=== PATIENT | male | born 1950 | race Caucasian/White ===

== ENCOUNTER 2016-11-04 11:16 | Inpatient (IN) | payer MEDICARE, OTHER ==
[~2016-11-04] VITALS: Ht 182.9 cm; Wt 90.7 kg
[~2016-11-04 11:16] MED LIST: ASCO-340 PO; BISA10SU8 RC; CARV6.252 PO; CLON0.5T PO; CLON1TAB PO; DEXT1CAP3 PO; DEXT38GE12 PO; DIPH-530 PO; DIVA500T4 PO; FOLI1TAB16 PO; GLUC1VIA IM; GLUCOSE GEL 40% PO; INSU100V10 SQ; INSU100V27 SQ; LACT10SO7 PO; LINE600T PO; MAGN400O4 PO; MULTIVITAL-M PO; OMEP40CA37 PO; QUET50TA PO; SIMV10TA2 PO; THIA100T70 PO; TYL2T PO; [UNRECOGNIZED DRUG - CODE] IV
[2016-11-04 11:55] LABS: BASOPHILS % (AUTO) 0.2 % (0.0-2.0); DIFF TOTAL % 100 %; EOSINOPHILS # (AUTO) 0.2 /CMM (0.0-0.7); EOSINOPHILS % (AUTO) 2.4 % (0.0-6.0); HEMATOCRIT 35 % (39-51); HEMOGLOBIN 11.1 g/dL (13.5-17.5); LYMPHOCYTES # (AUTO) 1.3 /CMM (0.8-4.8); LYMPHOCYTES % (AUTO) 12.8 % (20.0-44.0); MEAN CORPUSCULAR HEMOGLOBIN 25 PG (26.0-33.0); MEAN CORPUSCULAR HGB CONC 32 g/dl (31.0-36.0); MEAN CORPUSCULAR VOLUME 77 fL (80-96); MONOCYTES # (AUTO) 0.9 /CMM (0.1-1.30); MONOCYTES % (AUTO) 8.4 % (2.0-12.0); NEUTROPHILS # (AUTO) 7.8 /CMM (1.8-8.9); NEUTROPHILS % (AUTO) 76.2 % (43.0-81.0); PLATELET COUNT (AUTO) 246 /CMM (150-450); RED BLOOD CELL COUNT(AUTO) 4.53 MIL/uL (4.5-6.0); WHITE BLOOD COUNT (AUTO) 10.2 K/uL (4.3-11.0)
[2016-11-04 12:02] LABS: CALCIUM, SERUM 8.8 mg/dL (8.5-10.1); POTASSIUM 4.1 mmol/L (3.5-5.1)
[2016-11-04 12:10] LABS: TROPONIN I 0.054 ng/mL (0.00-0.056)
[2016-11-04 12:15] LABS: INR 1.9 (0.87-1.13); PROTHROMBIN TIME 20.7 SECS (9.5-12.7)
[2016-11-04 12:54] LABS: KETONES,URINE NEGATIVE (NEGATIVE); LEUKOCYTE ESTERASE ,URINE NEGATIVE (NEGATIVE); PH,URINE 6.5 (5.0-8.0)
[2016-11-04 12:57] LABS: ADD UA MICROSCOPIC YES
[2016-11-04] MEDS ORDERED: IV NS 0.9% 250 ML IV ONE (12:57)
[2016-11-04] MEDS ORDERED: IOHEXOL-350 100 ML VIAL IV ONE (12:57)
[2016-11-04] MEDS ORDERED: CT SWABBABLE VALVE TRANS SET 1 EA INFUS.SET MC ONE (12:57)
[2016-11-04 13:02] LABS: ADD URINE CULTURE NO; RBC,URINE 0-2 /HPF (0-2); WBC,URINE 0-2 /HPF (0-3)
[2016-11-04] MEDS ORDERED: MEROPENEM 1 G in IV NS 0.9% 100 ML IV SCH (14:00)
[2016-11-04] MEDS ORDERED: IV SET PRIMARY PUMP SET 1 EA INFUS.SET MC ONE ×2 (14:17→16:49)
[2016-11-04] MEDS ORDERED: ONDANSETRON HCL/PF 4 MG/2 ML VIAL IVP PRN (14:30)
[2016-11-04] MEDS ORDERED: ACETAMINOPHEN 325 MG TABLET PO SCH (14:30)
[2016-11-04] MEDS ORDERED: DEXTROSE 50% IV PRN (14:30)
[2016-11-04] MEDS ORDERED: IV NS 0.9% 1,000 ML BAG IV ONE (14:30)
[2016-11-04] MEDS ORDERED: WATER IV PRN (14:30)
[2016-11-04] MEDS ORDERED: ACETAMINOPHEN 325 MG TABLET PO PRN (14:30)
[2016-11-04] MEDS ORDERED: GLUCOSE PO SCH ×2 (14:30)
[2016-11-04] MEDS ORDERED: MORPHINE SULFATE INJ 2 MG/ML DISP.SYRIN IV PRN (14:30)
[2016-11-04] MEDS ORDERED: MAGNESIUM HYDROXIDE 30 ML UDC PO PRN (14:30)
[2016-11-04] MEDS ORDERED: DEXTROSE 50%-WATER 50 ML DISP.SYRIN IV PRN (14:30)
[2016-11-04] MEDS ORDERED: BISACODYL SUPP (10 MG) 10 MG/SUPP.RECT SUPP.RECT RC PRN (14:30)
[2016-11-04] MEDS ORDERED: GLUTOSE 15 G GEL..GM. PO SCH (14:30)
[2016-11-04] MEDS ORDERED: GLUCAGON,HUMAN RECOMBINANT 1 MG/VIAL VIAL IM PRN (14:30)
[2016-11-04 15:36] LABS: IRON, SERUM 28 ug/dl (50-175); PERCENT SATURATION 8 % (14-33); TOTAL IRON BINDING CAPACITY 368 ug/dl (250-450)
[2016-11-04 15:38] LABS: LACTIC ACID 1.4 mmol/L (0.4-2.0)
[2016-11-04 15:40] LABS: ABG HCO3 27.3 mmol/L; ABG PH 7.497 (7.350-7.450); ABG PO2 104.1 mmHg (75.0-100.0); ABG TOTAL HEMOGLOBIN 11.9 G/dL (13.5-18.0); ALLEN TEST Pass; AaDO2 53.1 mmHg; O2Hb 95.9 % (94.0-97.0)
[2016-11-04 15:44] LABS: ALBUMIN 3.3 g/dL (3.4-5.0); BILIRUBIN,DIRECT 0.3 mg/dL (0.0-0.2); INDIRECT BILIRUBIN 0.7 mg/dL (0.0-1.1); TOTAL PROTEIN, SERUM 6.4 g/dL (6.4-8.2)
[2016-11-04] MEDS ORDERED: diphenhydrAMINE HCL 25 MG CAPSULE PO PRN (16:00)
[2016-11-04 16:31] VITALS: BP 149/48
[2016-11-04] MEDS ORDERED: SECONDARY IV SET 1 EA INFUS.SET MC ONE (16:49)
[2016-11-04 17:00] VITALS: BP 143/100
[2016-11-04] MEDS: AZTREONAM 1 G in IV NS 0.9% 50 ML IV SCH (17:20)
[2016-11-04] MEDS: methylPREDNISolone SOD SUCC 125 MG/2ML VIAL IV SCH (17:21)
[2016-11-04] MEDS: CARVEDILOL 6.25 MG TABLET PO SCH (17:22)
[2016-11-04] MEDS: LACTULOSE 10 G/15 ML UDC (PYXIS) PO SCH (17:25)
[2016-11-04] MEDS: WARFARIN SODIUM 5 MG TABLET PO SCH (17:25)
[2016-11-04 17:30] VITALS: BP 152/50
[2016-11-04] MEDS: BLOOD SUGAR DIAGNOSTIC 1 EACH STRIP IN SCH (17:58)
[2016-11-04 18:00] VITALS: BP 149/117
[2016-11-04 20:00] VITALS: BP 132/91
[2016-11-04] MEDS ORDERED: Medication Not On Formulary EA (Dextromethorphan Hbr/Quinidine (Nuedexta 20-10 Mg Capsul PO SCH (21:00)
[2016-11-04] MEDS: QUETIAPINE FUMARATE 25 MG TABLET PO SCH (21:02)
[2016-11-04] MEDS: SIMVASTATIN 10 MG TABLET PO SCH (21:02)
[2016-11-04] MEDS: LINEZOLID 600 MG TABLET PO SCH (21:03)
[2016-11-04] MEDS: DIVALPROEX SODIUM 500 MG TABLET.DR PO SCH (21:03)
[2016-11-04] MEDS: INSULIN DETEMIR 100 UNIT/ML CARTRIDGE SQ SCH (21:09)
[2016-11-04] MEDS ORDERED: clonazePAM 1 MG TABLET PO SCH (22:00)
[2016-11-05] VITALS: BP 128/85
[2016-11-05] MEDS ORDERED: SECONDARY IV SET 1 EA INFUS.SET MC ONE ×2 (00:35→08:58)
[2016-11-05] MEDS ORDERED: IV SET PRIMARY PUMP SET 1 EA INFUS.SET MC ONE (00:36)
[2016-11-05] MEDS: BLOOD SUGAR DIAGNOSTIC 1 EACH STRIP IN SCH ×4 (00:44→17:05)
[2016-11-05] MEDS: AZTREONAM 1 G in IV NS 0.9% 50 ML IV SCH ×3 (00:45→16:53)
[2016-11-05] MEDS: INSULIN REGULAR, HUMAN 100 UNIT/ML 3 ML VIAL SQ PRN ×3 (00:48→17:39)
[2016-11-05 04:00] VITALS: BP 126/87
[2016-11-05 07:16] LABS: TROPONIN I 0.039 ng/mL (0.00-0.056)
[2016-11-05 07:21] LABS: ALBUMIN 2.9 g/dL (3.4-5.0); BILIRUBIN,TOTAL 0.9 mg/dL (0.2-1.0); CALCIUM, SERUM 8.5 mg/dL (8.5-10.1); POTASSIUM 4.5 mmol/L (3.5-5.1); TOTAL PROTEIN, SERUM 6.1 g/dL (6.4-8.2)
[2016-11-05 07:22] LABS: INR 2.03 (0.87-1.13); PROTHROMBIN TIME 22.1 SECS (9.5-12.7)
[2016-11-05 07:24] LABS: CREATINE KINASE MB 1.8 ng/mL (0-3.6)
[2016-11-05 07:28] LABS: BASOPHILS % (AUTO) 0.1 % (0.0-2.0); DIFF TOTAL % 100 %; HEMATOCRIT 34 % (39-51); HEMOGLOBIN 10.9 g/dL (13.5-17.5); LYMPHOCYTES # (AUTO) 0.5 /CMM (0.8-4.8); LYMPHOCYTES % (AUTO) 6.2 % (20.0-44.0); MEAN CORPUSCULAR HEMOGLOBIN 25 PG (26.0-33.0); MEAN CORPUSCULAR HGB CONC 32 g/dl (31.0-36.0); MEAN CORPUSCULAR VOLUME 77 fL (80-96); MONOCYTES # (AUTO) 0.3 /CMM (0.1-1.30); MONOCYTES % (AUTO) 4.3 % (2.0-12.0); NEUTROPHILS # (AUTO) 6.7 /CMM (1.8-8.9); NEUTROPHILS % (AUTO) 89.4 % (43.0-81.0); PLATELET COUNT (AUTO) 241 /CMM (150-450); RED BLOOD CELL COUNT(AUTO) 4.43 MIL/uL (4.5-6.0); WHITE BLOOD COUNT (AUTO) 7.5 K/uL (4.3-11.0)
[2016-11-05 08:00] VITALS: BP 118/88
[2016-11-05] MEDS ORDERED: IV NS 0.9% 250 ML IV ONE (08:58)
[2016-11-05] MEDS ORDERED: clonazePAM 0.5 MG TABLET PO SCH (09:00)
[2016-11-05] MEDS ORDERED: Medication Not On Formulary EA (Omeprazole 40 MG) PO SCH (09:00)
[2016-11-05] MEDS: PANTOPRAZOLE 40 MG VIAL IV SCH (09:03)
[2016-11-05] MEDS: MULTIVIT, IRON, MIN NO. 8, FA 1 TAB TABLET PO SCH (09:03)
[2016-11-05] MEDS: methylPREDNISolone SOD SUCC 125 MG/2ML VIAL IV SCH ×3 (09:03→16:54)
[2016-11-05] MEDS: ASCORBIC ACID 500 MG TABLET PO SCH (09:04)
[2016-11-05] MEDS: DIVALPROEX SODIUM 500 MG TABLET.DR PO SCH ×2 (09:04→21:10)
[2016-11-05] MEDS: THIAMINE HCL 100 MG TABLET PO SCH (09:04)
[2016-11-05] MEDS: CARVEDILOL 6.25 MG TABLET PO SCH ×2 (09:04→16:54)
[2016-11-05] MEDS: FOLIC ACID 1 MG TABLET PO SCH (09:04)
[2016-11-05] MEDS: LACTULOSE 10 G/15 ML UDC (PYXIS) PO SCH ×2 (09:04→16:54)
[2016-11-05] MEDS: LINEZOLID 600 MG TABLET PO SCH ×2 (09:05→21:10)
[2016-11-05 12:00] VITALS: BP 108/79
[2016-11-05] MEDS: IV D5/ 0.9% NACL 1,000 ML IV PRN (12:28)
[2016-11-05 16:00] VITALS: BP 131/90
[2016-11-05] MEDS: WARFARIN SODIUM 5 MG TABLET PO SCH (16:55)
[2016-11-05 20:00] VITALS: BP 130/87
[2016-11-05] MEDS: SIMVASTATIN 10 MG TABLET PO SCH (21:10)
[2016-11-05] MEDS: QUETIAPINE FUMARATE 25 MG TABLET PO SCH (21:10)
[2016-11-05] MEDS: INSULIN DETEMIR 100 UNIT/ML CARTRIDGE SQ SCH (21:19)
[2016-11-06] MEDS: AZTREONAM 1 G in IV NS 0.9% 50 ML IV SCH ×3 (01:09→16:43)
[2016-11-06] MEDS: IV D5/ 0.9% NACL 1,000 ML IV PRN ×2 (01:09→18:25)
[2016-11-06] MEDS: BLOOD SUGAR DIAGNOSTIC 1 EACH STRIP IN SCH ×5 (01:10→22:02)
[2016-11-06] MEDS: INSULIN REGULAR, HUMAN 100 UNIT/ML 3 ML VIAL SQ PRN ×4 (01:11→22:01)
[2016-11-06] MEDS ORDERED: HALOPERIDOL LACTATE INJ 5 MG/ML VIAL IM ONE (05:30)
[2016-11-06] MEDS ORDERED: HALOPERIDOL LACTATE INJ 5 MG/ML VIAL ONE (05:43)
[2016-11-06 08:00] VITALS: BP 128/92
[2016-11-06 08:09] LABS: POTASSIUM 4.1 mmol/L (3.5-5.1)
[2016-11-06 08:13] LABS: DIFF TOTAL % 100 %; EOSINOPHILS % (AUTO) 0.2 % (0.0-6.0); HEMATOCRIT 36 % (39-51); HEMOGLOBIN 11.6 g/dL (13.5-17.5); LYMPHOCYTES # (AUTO) 0.6 /CMM (0.8-4.8); LYMPHOCYTES % (AUTO) 4.7 % (20.0-44.0); MEAN CORPUSCULAR HEMOGLOBIN 25 PG (26.0-33.0); MEAN CORPUSCULAR HGB CONC 32 g/dl (31.0-36.0); MEAN CORPUSCULAR VOLUME 77 fL (80-96); MONOCYTES # (AUTO) 0.7 /CMM (0.1-1.30); MONOCYTES % (AUTO) 5.3 % (2.0-12.0); NEUTROPHILS # (AUTO) 11.6 /CMM (1.8-8.9); NEUTROPHILS % (AUTO) 89.8 % (43.0-81.0); PLATELET COUNT (AUTO) 266 /CMM (150-450); RED BLOOD CELL COUNT(AUTO) 4.73 MIL/uL (4.5-6.0); WHITE BLOOD COUNT (AUTO) 12.9 K/uL (4.3-11.0)
[2016-11-06] MEDS: LINEZOLID 600 MG TABLET PO SCH ×2 (08:33→22:02)
[2016-11-06] MEDS: PANTOPRAZOLE 40 MG VIAL IV SCH (08:33)
[2016-11-06] MEDS: methylPREDNISolone SOD SUCC 125 MG/2ML VIAL IV SCH ×3 (08:33→16:43)
[2016-11-06] MEDS: MULTIVIT, IRON, MIN NO. 8, FA 1 TAB TABLET PO SCH (08:33)
[2016-11-06] MEDS: ASCORBIC ACID 500 MG TABLET PO SCH (08:33)
[2016-11-06] MEDS: THIAMINE HCL 100 MG TABLET PO SCH (08:33)
[2016-11-06] MEDS: DIVALPROEX SODIUM 500 MG TABLET.DR PO SCH ×2 (08:33→22:02)
[2016-11-06] MEDS: FOLIC ACID 1 MG TABLET PO SCH (08:34)
[2016-11-06] MEDS: CARVEDILOL 6.25 MG TABLET PO SCH ×2 (08:34→16:43)
[2016-11-06] MEDS: LACTULOSE 10 G/15 ML UDC (PYXIS) PO SCH ×2 (08:37→16:43)
[2016-11-06 12:00] VITALS: BP 118/83
[2016-11-06] MEDS ORDERED: DEXTROSE 50%-WATER 50 ML DISP.SYRIN IV PRN (12:00)
[2016-11-06 16:00] VITALS: BP 118/83
[2016-11-06] MEDS: WARFARIN SODIUM 5 MG TABLET PO SCH (17:00)
[2016-11-06 17:42] LABS: PROTHROMBIN TIME 52.9 SECS (9.5-12.7)
[2016-11-06 17:48] LABS: INR 4.82 (0.87-1.13)
[2016-11-06] MEDS: Z GUARD REMEDY 2 OZ OINT TP SCH (17:52)
[2016-11-06] MEDS: INSULIN DETEMIR 100 UNIT/ML CARTRIDGE SQ SCH (21:56)
[2016-11-06] MEDS: QUETIAPINE FUMARATE 25 MG TABLET PO SCH (22:02)
[2016-11-06] MEDS: SIMVASTATIN 10 MG TABLET PO SCH (22:02)
[2016-11-07] VITALS: BP 125/68
[2016-11-07] MEDS: AZTREONAM 1 G in IV NS 0.9% 50 ML IV SCH ×3 (01:47→17:33)
[2016-11-07 07:19] LABS: DIFF TOTAL % 100 %; EOSINOPHILS % (AUTO) 0.2 % (0.0-6.0); HEMATOCRIT 36 % (39-51); HEMOGLOBIN 11.6 g/dL (13.5-17.5); LYMPHOCYTES # (AUTO) 0.7 /CMM (0.8-4.8); LYMPHOCYTES % (AUTO) 4.9 % (20.0-44.0); MEAN CORPUSCULAR HEMOGLOBIN 25 PG (26.0-33.0); MEAN CORPUSCULAR HGB CONC 32 g/dl (31.0-36.0); MEAN CORPUSCULAR VOLUME 77 fL (80-96); MONOCYTES # (AUTO) 0.7 /CMM (0.1-1.30); MONOCYTES % (AUTO) 4.6 % (2.0-12.0); NEUTROPHILS # (AUTO) 13.6 /CMM (1.8-8.9); NEUTROPHILS % (AUTO) 90.3 % (43.0-81.0); PLATELET COUNT (AUTO) 281 /CMM (150-450); RED BLOOD CELL COUNT(AUTO) 4.74 MIL/uL (4.5-6.0); WHITE BLOOD COUNT (AUTO) 15.1 K/uL (4.3-11.0)
[2016-11-07 07:26] LABS: INR 3.85 (0.87-1.13); PROTHROMBIN TIME 42.1 SECS (9.5-12.7)
[2016-11-07 07:35] LABS: ANION GAP 14 (5-14); CALCIUM, SERUM 8.7 mg/dL (8.5-10.1); CARBON DIOXIDE 24 mmol/L (21-32); CHLORIDE 106 mmol/L (98-107); GFR 75 mL/min (>60); GLUCOSE 147 mg/dL (74-106); POTASSIUM 4.1 mmol/L (3.5-5.1); SODIUM SERUM 140 mmol/L (136-145); UREA NITROGEN, BLOOD 25 mg/dL (7-18)
[2016-11-07 08:00] VITALS: BP 138/81
[2016-11-07 08:05] LABS: LACTIC ACID 2.1 mmol/L (0.4-2.0)
[2016-11-07 08:06] LABS: *LACTIC ACID REFLEX FLAG YES
[2016-11-07] MEDS: BLOOD SUGAR DIAGNOSTIC 1 EACH STRIP IN SCH ×4 (08:18→21:23)
[2016-11-07] MEDS: INSULIN REGULAR, HUMAN 100 UNIT/ML 3 ML VIAL SQ PRN ×4 (08:21→21:26)
[2016-11-07] MEDS: Z GUARD REMEDY 2 OZ OINT TP SCH (08:59)
[2016-11-07] MEDS: PANTOPRAZOLE 40 MG VIAL IV SCH (09:00)
[2016-11-07] MEDS ORDERED: Z GUARD REMEDY 2 OZ OINT TP SCH (09:00)
[2016-11-07] MEDS: CARVEDILOL 6.25 MG TABLET PO SCH ×3 (09:00→17:33)
[2016-11-07] MEDS: LACTULOSE 10 G/15 ML UDC (PYXIS) PO SCH ×2 (09:00→17:33)
[2016-11-07] MEDS: methylPREDNISolone SOD SUCC 125 MG/2ML VIAL IV SCH (09:00)
[2016-11-07] MEDS: FOLIC ACID 1 MG TABLET PO SCH (09:01)
[2016-11-07] MEDS: THIAMINE HCL 100 MG TABLET PO SCH (09:01)
[2016-11-07] MEDS: LINEZOLID 600 MG TABLET PO SCH (09:01)
[2016-11-07] MEDS: MULTIVIT, IRON, MIN NO. 8, FA 1 TAB TABLET PO SCH (09:01)
[2016-11-07] MEDS: DIVALPROEX SODIUM 500 MG TABLET.DR PO SCH ×2 (09:01→21:23)
[2016-11-07] MEDS: ASCORBIC ACID 500 MG TABLET PO SCH (09:01)
[2016-11-07] MEDS ORDERED: IV SET PRIMARY PUMP SET 1 EA INFUS.SET MC ONE (09:07)
[2016-11-07] MEDS ORDERED: IV NS 0.9% 500 ML IV ONE (09:07)
[2016-11-07] MEDS ORDERED: IV NS 0.9% 1,000 ML BAG IV ONE (09:30)
[2016-11-07 10:05] LABS: BILIRUBIN,DIRECT 0.2 mg/dL (0.0-0.2); BILIRUBIN,TOTAL 0.6 mg/dL (0.2-1.0)
[2016-11-07 12:00] VITALS: BP 134/90
[2016-11-07 16:00] VITALS: BP 139/90
[2016-11-07] MEDS: IV D5/ 0.9% NACL 1,000 ML IV PRN (16:21)
[2016-11-07 16:29] LABS: QFT NIL VALUE 0.03 IU/mL (.)
[2016-11-07] MEDS: WARFARIN SODIUM 5 MG TABLET PO SCH (17:00)
[2016-11-07 20:00] VITALS: BP 137/97
[2016-11-07] MEDS: QUETIAPINE FUMARATE 25 MG TABLET PO SCH (21:24)
[2016-11-07] MEDS: SIMVASTATIN 10 MG TABLET PO SCH (21:24)
[2016-11-07] MEDS: INSULIN DETEMIR 100 UNIT/ML CARTRIDGE SQ SCH (21:26)
[2016-11-08] MEDS: AZTREONAM 1 G in IV NS 0.9% 50 ML IV SCH ×3 (01:48→16:32)
[2016-11-08 04:00] VITALS: BP 132/90
[2016-11-08] MEDS: BLOOD SUGAR DIAGNOSTIC 1 EACH STRIP IN SCH ×4 (07:32→22:46)
[2016-11-08 08:00] VITALS: BP 123/89
[2016-11-08] MEDS: PANTOPRAZOLE 40 MG VIAL IV SCH (08:10)
[2016-11-08] MEDS: LACTULOSE 10 G/15 ML UDC (PYXIS) PO SCH ×2 (08:11→16:31)
[2016-11-08] MEDS: THIAMINE HCL 100 MG TABLET PO SCH (08:11)
[2016-11-08] MEDS: MULTIVIT, IRON, MIN NO. 8, FA 1 TAB TABLET PO SCH (08:11)
[2016-11-08] MEDS: ASCORBIC ACID 500 MG TABLET PO SCH (08:11)
[2016-11-08] MEDS: FOLIC ACID 1 MG TABLET PO SCH (08:11)
[2016-11-08] MEDS: DIVALPROEX SODIUM 500 MG TABLET.DR PO SCH ×2 (08:11→22:40)
[2016-11-08] MEDS: CARVEDILOL 6.25 MG TABLET PO SCH ×2 (08:11→16:31)
[2016-11-08] MEDS: Z GUARD REMEDY 2 OZ OINT TP SCH (08:12)
[2016-11-08 12:00] VITALS: BP 134/99
[2016-11-08 13:19] LABS: CALCIUM, SERUM 8.6 mg/dL (8.5-10.1); POTASSIUM 3.3 mmol/L (3.5-5.1)
[2016-11-08 13:25] LABS: INR 2.9 (0.87-1.13); PROTHROMBIN TIME 31.7 SECS (9.5-12.7)
[2016-11-08 14:18] LABS: DIFF TOTAL % 100 %; EOSINOPHILS % (AUTO) 0.1 % (0.0-6.0); HEMATOCRIT 37 % (39-51); HEMOGLOBIN 11.5 g/dL (13.5-17.5); LYMPHOCYTES # (AUTO) 0.6 /CMM (0.8-4.8); LYMPHOCYTES % (AUTO) 3.6 % (20.0-44.0); MEAN CORPUSCULAR HEMOGLOBIN 24 PG (26.0-33.0); MEAN CORPUSCULAR HGB CONC 32 g/dl (31.0-36.0); MEAN CORPUSCULAR VOLUME 77 fL (80-96); MONOCYTES # (AUTO) 0.6 /CMM (0.1-1.30); MONOCYTES % (AUTO) 3.8 % (2.0-12.0); NEUTROPHILS # (AUTO) 14.1 /CMM (1.8-8.9); NEUTROPHILS % (AUTO) 92.5 % (43.0-81.0); PLATELET COUNT (AUTO) 268 /CMM (150-450); RED BLOOD CELL COUNT(AUTO) 4.74 MIL/uL (4.5-6.0); WHITE BLOOD COUNT (AUTO) 15.3 K/uL (4.3-11.0)
[2016-11-08 16:00] VITALS: BP 159/70
[2016-11-08 16:16] VITALS: BP 159/70
[2016-11-08] MEDS: INSULIN REGULAR, HUMAN 100 UNIT/ML 3 ML VIAL SQ PRN (16:45)
[2016-11-08] MEDS ORDERED: WARFARIN SODIUM 1 MG TABLET PO SCH (17:00)
[2016-11-08 20:00] VITALS: BP 104/64
[2016-11-08] MEDS: INSULIN DETEMIR 100 UNIT/ML CARTRIDGE SQ SCH (22:00)
[2016-11-08] MEDS: QUETIAPINE FUMARATE 25 MG TABLET PO SCH (22:41)
[2016-11-08] MEDS: SIMVASTATIN 10 MG TABLET PO SCH (22:41)
[2016-11-08] MEDS ORDERED: IV SET PRIMARY PUMP SET 1 EA INFUS.SET MC ONE (23:15)
[2016-11-08] MEDS: IV D5/ 0.9% NACL 1,000 ML IV PRN (23:21)
[2016-11-08] MEDS ORDERED: SECONDARY IV SET 1 EA INFUS.SET MC ONE (23:31)
[2016-11-09] MEDS: AZTREONAM 1 G in IV NS 0.9% 50 ML IV SCH ×2 (00:39→08:14)
[2016-11-09 04:00] VITALS: BP 123/84
[2016-11-09] MEDS: BLOOD SUGAR DIAGNOSTIC 1 EACH STRIP IN SCH ×2 (06:48→12:11)
[2016-11-09 06:49] LABS: DIFF TOTAL % 100 %; EOSINOPHILS % (AUTO) 0.5 % (0.0-6.0); HEMATOCRIT 36 % (39-51); HEMOGLOBIN 11.3 g/dL (13.5-17.5); LYMPHOCYTES # (AUTO) 0.7 /CMM (0.8-4.8); LYMPHOCYTES % (AUTO) 6.9 % (20.0-44.0); MEAN CORPUSCULAR HEMOGLOBIN 24 PG (26.0-33.0); MEAN CORPUSCULAR HGB CONC 32 g/dl (31.0-36.0); MEAN CORPUSCULAR VOLUME 77 fL (80-96); MONOCYTES # (AUTO) 0.9 /CMM (0.1-1.30); MONOCYTES % (AUTO) 8.5 % (2.0-12.0); NEUTROPHILS % (AUTO) 84.1 % (43.0-81.0); PLATELET COUNT (AUTO) 230 /CMM (150-450); RED BLOOD CELL COUNT(AUTO) 4.68 MIL/uL (4.5-6.0); WHITE BLOOD COUNT (AUTO) 10.7 K/uL (4.3-11.0)
[2016-11-09 06:56] LABS: CALCIUM, SERUM 7.9 mg/dL (8.5-10.1); CREATININE 0.9 mg/dL (0.6-1.3); INR 2.79 (0.87-1.13); PROTHROMBIN TIME 30.4 SECS (9.5-12.7)
[2016-11-09 07:33] LABS: POTASSIUM 2.8 mmol/L (3.5-5.1)
[2016-11-09] MEDS ORDERED: SECONDARY IV SET 1 EA INFUS.SET MC ONE ×2 (07:57→08:50)
[2016-11-09] MEDS ORDERED: IV SET PRIMARY PUMP SET 1 EA INFUS.SET MC ONE (07:57)
[2016-11-09 08:00] VITALS: BP 114/85
[2016-11-09] MEDS: ASCORBIC ACID 500 MG TABLET PO SCH (08:14)
[2016-11-09] MEDS: PANTOPRAZOLE 40 MG VIAL IV SCH (08:14)
[2016-11-09] MEDS: MULTIVIT, IRON, MIN NO. 8, FA 1 TAB TABLET PO SCH (08:14)
[2016-11-09] MEDS: FOLIC ACID 1 MG TABLET PO SCH (08:14)
[2016-11-09] MEDS: DIVALPROEX SODIUM 500 MG TABLET.DR PO SCH (08:14)
[2016-11-09] MEDS: LACTULOSE 10 G/15 ML UDC (PYXIS) PO SCH (08:14)
[2016-11-09 08:15] VITALS: BP 114/85
[2016-11-09] MEDS: THIAMINE HCL 100 MG TABLET PO SCH (08:15)
[2016-11-09] MEDS: CARVEDILOL 6.25 MG TABLET PO SCH (08:15)
[2016-11-09] MEDS: Z GUARD REMEDY 2 OZ OINT TP SCH (08:15)
[2016-11-09] MEDS: POTASSIUM CL. PREMIX PERIPHER. 50 ML IV ONE ×2 (08:55→09:02)
[2016-11-09] MEDS: POTASSIUM CL. PREMIX PERIPHER. 50 ML IV SCH ×4 (09:20→12:49)
[2016-11-09] MEDS ORDERED: AZTR1FRO IV (11:34)
[2016-11-09] MEDS ORDERED: ONCOUMADIN PO (11:36)
== END 2016-11-09 18:38 | DRG 177 ==
LOC: ER 11:17 → ICU 15:48 → TELE1 18:38 → MEDSG1 11-05 11:36 → UNDODISIN 11-09 16:24
DX: J15.6 Pneumonia due to other Gram-negative bacteria (principal); I50.33 Acute on chronic diastolic (congestive) heart failure; G92 Toxic encephalopathy; D68.59 Other primary thrombophilia; E87.2 Acidosis; J90 Pleural effusion, not elsewhere classified; D50.9 Iron deficiency anemia, unspecified; E11.9 Type 2 diabetes mellitus without complications; E87.6 Hypokalemia; E88.09 Other disorders of plasma-protein metabolism, not elsewhere classified; F01.50 Vascular dementia, unspecified severity, without behavioral disturbance, psychotic disturbance, mood disturbance, and anxiety; F41.9 Anxiety disorder, unspecified; K21.9 Gastro-esophageal reflux disease without esophagitis; Z87.891 Personal history of nicotine dependence; D63.8 Anemia in other chronic diseases classified elsewhere; I11.0 Hypertensive heart disease with heart failure; Z86.73 Personal history of transient ischemic attack (TIA), and cerebral infarction without residual deficits; Z95.2 Presence of prosthetic heart valve; R47.1 Dysarthria and anarthria; I25.10 Atherosclerotic heart disease of native coronary artery without angina pectoris; Z95.1 Presence of aortocoronary bypass graft; I48.2 Chronic atrial fibrillation; Z79.01 Long term (current) use of anticoagulants; F32.9 Major depressive disorder, single episode, unspecified; S80.12XA Contusion of left lower leg, initial encounter; S80.11XA Contusion of right lower leg, initial encounter; X58.XXXA Exposure to other specified factors, initial encounter; Y93.9 Activity, unspecified; Y92.89 Other specified places as the place of occurrence of the external cause; Y99.9 Unspecified external cause status; I27.2 Other secondary pulmonary hypertension; T38.0X5A Adverse effect of glucocorticoids and synthetic analogues, initial encounter; Z87.01 Personal history of pneumonia (recurrent); Z88.1 Allergy status to other antibiotic agents
CPT/HCPCS: 36415; 36600; 70450-TC; 71010-TC; 80048-TC; 80053-TC; 80076-TC; 80164-TC; 81000-TC; 82247-TC; 82248-TC; 82272-TC; 82553-TC; 82962-TC; 83540-TC; 83605-TC; 84484-TC; 85025-TC; 85610-TC; 85730-TC; 87040-TC; 87081-TC; 87086-TC; 87186-TC; 87400; 92611-TC; 93307-TC; 94799-TC; A4216; A4606; C9113; J1630; J1815; J2185; J2930; J3480; J3490; J7030; J7040; J7042; J7050; Q9967; Z7610

== ENCOUNTER 2016-11-15 13:57 | Inpatient (IN) | payer MEDICARE, OTHER ==
[~2016-11-15] VITALS: Ht 177.8 cm; Wt 93.4 kg
[2016-11-15] VITALS (30 sets, daily range): BP systolic 68–121; BP diastolic 37–86
[~2016-11-15 13:57] MED LIST changes: +AZTR1FRO IV; -LINE600T PO; +ONCOUMADIN PO
[2016-11-15] MEDS ORDERED: DEXTROSE 50%-WATER 50 ML DISP.SYRIN ONE (14:06)
[2016-11-15] MEDS ORDERED: IV NS 0.9% 1,000 ML IV ONE (14:10)
[2016-11-15] MEDS ORDERED: DILTIAZEM HCL 25 MG IV ONE (14:16)
[2016-11-15] MEDS ORDERED: IV SET PRIMARY PUMP SET 1 EA INFUS.SET MC ONE ×2 (14:16→20:53)
[2016-11-15] MEDS ORDERED: IV NS 0.9% 1,000 ML ONE (14:16)
[2016-11-15 14:28] LABS: ABG BASE EXCESS -1.8 mmol/L; ABG HCO3 22.7 mmol/L; ABG PH 7.395 (7.350-7.450); ABG PO2 53.4 mmHg (75.0-100.0); ABG TOTAL HEMOGLOBIN 12.6 G/dL (13.5-18.0); ALLEN TEST Pass; AaDO2 260.4 mmHg; O2Hb 84.4 % (94.0-97.0)
[2016-11-15] MEDS ORDERED: DILTIAZEM HCL 50 MG IV IV ONE (14:30)
[2016-11-15] MEDS ORDERED: DEXTROSE 50%-WATER 50 ML DISP.SYRIN IV ONE (14:30)
[2016-11-15 14:53] LABS: BASOPHILS # (AUTO) 0.9 /CMM (0.0-0.2); BASOPHILS % (AUTO) 3.5 % (0.0-2.0); DIFF TOTAL % 100 %; EOSINOPHILS % (AUTO) 0.1 % (0.0-6.0); HEMATOCRIT 42 % (39-51); HEMOGLOBIN 12.9 g/dL (13.5-17.5); LYMPHOCYTES # (AUTO) 0.6 /CMM (0.8-4.8); LYMPHOCYTES % (AUTO) 2.3 % (20.0-44.0); MEAN CORPUSCULAR HEMOGLOBIN 24 PG (26.0-33.0); MEAN CORPUSCULAR HGB CONC 31 g/dl (31.0-36.0); MEAN CORPUSCULAR VOLUME 78 fL (80-96); MONOCYTES # (AUTO) 1.7 /CMM (0.1-1.30); MONOCYTES % (AUTO) 6.8 % (2.0-12.0); NEUTROPHILS # (AUTO) 21.7 /CMM (1.8-8.9); NEUTROPHILS % (AUTO) 87.3 % (43.0-81.0); PLATELET COUNT (AUTO) 297 /CMM (150-450); RED BLOOD CELL COUNT(AUTO) 5.39 MIL/uL (4.5-6.0); WHITE BLOOD COUNT (AUTO) 24.9 K/uL (4.3-11.0)
[2016-11-15 15:04] LABS: ANION GAP 14 (5-14); CALCIUM, SERUM 8.7 mg/dL (8.5-10.1); CARBON DIOXIDE 25 mmol/L (21-32); CHLORIDE 109 mmol/L (98-107); GFR 75 mL/min (>60); GLUCOSE 286 mg/dL (74-106); POTASSIUM 4.6 mmol/L (3.5-5.1); SODIUM SERUM 143 mmol/L (136-145); UREA NITROGEN, BLOOD 22 mg/dL (7-18)
[2016-11-15 15:12] LABS: TROPONIN I 0.038 ng/mL (0.00-0.056)
[2016-11-15 15:17] LABS: ALANINE AMINOTRANSFERASE 13 U/L (12-78); ASPARTATE AMINOTRANSFERASE 26 U/L (15-37); BILIRUBIN,DIRECT 0.4 mg/dL (0.0-0.2); BILIRUBIN,TOTAL 0.9 mg/dL (0.2-1.0); INDIRECT BILIRUBIN 0.5 mg/dL (0.0-1.1); TOTAL PROTEIN, SERUM 6.8 g/dL (6.4-8.2)
[2016-11-15 15:32] LABS: LACTIC ACID 2.3 mmol/L (0.4-2.0)
[2016-11-15 15:51] LABS: *LACTIC ACID REFLEX FLAG YES
[2016-11-15] MEDS ORDERED: AZTREONAM 1 G in IV NS 0.9% 100 ML IV ONE (16:00)
[2016-11-15] MEDS ORDERED: NITROGLYCERIN PACKET 1 GM PACKET TOP ONE (16:00)
[2016-11-15] MEDS ORDERED: FUROSEMIDE 40 MG/4 ML VIAL ONE (16:00)
[2016-11-15] MEDS ORDERED: FUROSEMIDE 40 MG/4 ML VIAL IV ONE (16:00)
[2016-11-15] MEDS ORDERED: NITROGLYCERIN PACKET 1 GM PACKET ONE (16:00)
[2016-11-15] MEDS ORDERED: ONDANSETRON HCL/PF 4 MG/2 ML VIAL ONE (16:01)
[2016-11-15 16:21] LABS: BAND % (MANUAL) 1 % (0.0-5.0); LYMPHOCYTES % (MANUAL) 6 % (16-48); PLATELET ESTIMATE ADEQUATE; POIKILOCYTOSIS 1+
[2016-11-15] MEDS ORDERED: MAGNESIUM HYDROXIDE 30 ML UDC PO PRN ×2 (16:30→23:30)
[2016-11-15] MEDS ORDERED: ONDANSETRON HCL/PF 4 MG/2 ML VIAL IVP PRN (16:30)
[2016-11-15] MEDS ORDERED: ZOLPIDEM TARTRATE 5 MG TABLET PO PRN (16:30)
[2016-11-15] MEDS ORDERED: Z GUARD REMEDY 2 OZ OINT TP PRN ×2 (16:30→18:30)
[2016-11-15] MEDS ORDERED: MAG HYDROX/AL HYDROX/SIMETH 30 ML UDC PO PRN (16:30)
[2016-11-15] MEDS ORDERED: ACETAMINOPHEN 325 MG TABLET PO PRN (16:30)
[2016-11-15] MEDS ORDERED: CLINDAMYCIN IV RTU IN D5W 900 MG/50 ML PIGGYBACK IV SCH (17:00)
[2016-11-15] MEDS ORDERED: LEVOFLOXACIN 750 MG /D5W 150ML 150 ML IV SCH (17:00)
[2016-11-15 17:09] LABS: KETONES,URINE 1+ (NEGATIVE); LEUKOCYTE ESTERASE ,URINE NEGATIVE (NEGATIVE)
[2016-11-15 17:11] LABS: ADD UA MICROSCOPIC YES
[2016-11-15 17:14] LABS: ADD URINE CULTURE NO; WBC,URINE 0-2 /HPF (0-3)
[2016-11-15] MEDS ORDERED: BLOOD SUGAR DIAGNOSTIC 1 EACH STRIP IN SCH (19:00)
[2016-11-15] MEDS ORDERED: DEXTROSE 50%-WATER 50 ML DISP.SYRIN IV PRN ×2 (19:00→21:00)
[2016-11-15] MEDS: IPRATROPIUM NEB FS 0.5 MG/2.5 ML AMPUL.NEB NEB SCH ×2 (19:33→23:13)
[2016-11-15] MEDS ORDERED: CLINDAMYCIN 900 MG in IV D5W 50 ML IV SCH (20:00)
[2016-11-15] MEDS ORDERED: IV NS 0.9% 250 ML IV ONE (20:30)
[2016-11-15] MEDS ORDERED: SECONDARY IV SET 1 EA INFUS.SET MC ONE ×2 (20:53→21:49)
[2016-11-15] MEDS: BLOOD SUGAR DIAGNOSTIC 1 EACH STRIP IN SCH ×2 (21:00→23:20)
[2016-11-15] MEDS: MEROPENEM 1 G in IV NS 0.9% 100 ML IV SCH (21:00)
[2016-11-15] MEDS ORDERED: MEROPENEM 500 MG in IV NS 0.9% 50 ML IV SCH (21:00)
[2016-11-15] MEDS ORDERED: NOREPINEPHRINE 8 MG in IV D5W 500 ML IV PRN (21:00)
[2016-11-15] MEDS: LINEZOLID RTU BAG 600 MG in PREMIX 1 EA IV SCH (21:32)
[2016-11-15] MEDS ORDERED: BISACODYL SUPP (10 MG) 10 MG/SUPP.RECT SUPP.RECT RC PRN (23:30)
[2016-11-16] VITALS (79 sets, daily range): BP systolic 62–156; BP diastolic 31–94
[2016-11-16] MEDS ORDERED: AZTREONAM 1 G in IV NS 0.9% 100 ML IV SCH ×2
[2016-11-16] MEDS: BLOOD SUGAR DIAGNOSTIC 1 EACH STRIP IN SCH ×7 (01:13→13:58)
[2016-11-16] MEDS ORDERED: CELLULOSE,OXIDIZED 1 EA PACK MC ONE (02:00)
[2016-11-16] MEDS: ALBUTEROL FS 2.5 MG/0.5 ML VIAL.NEB NEB PRN (03:55)
[2016-11-16] MEDS: IPRATROPIUM NEB FS 0.5 MG/2.5 ML AMPUL.NEB NEB SCH ×6 (03:55→23:51)
[2016-11-16] MEDS: MEROPENEM 1 G in IV NS 0.9% 100 ML IV SCH ×3 (04:30→20:11)
[2016-11-16 04:44] LABS: DIFF TOTAL % 100 %; HEMATOCRIT 35 % (39-51); HEMOGLOBIN 10.9 g/dL (13.5-17.5); LYMPHOCYTES # (AUTO) 0.7 /CMM (0.8-4.8); MEAN CORPUSCULAR HEMOGLOBIN 24 PG (26.0-33.0); MEAN CORPUSCULAR HGB CONC 32 g/dl (31.0-36.0); MEAN CORPUSCULAR VOLUME 77 fL (80-96); MONOCYTES # (AUTO) 1.8 /CMM (0.1-1.30); MONOCYTES % (AUTO) 8.3 % (2.0-12.0); NEUTROPHILS # (AUTO) 19.4 /CMM (1.8-8.9); NEUTROPHILS % (AUTO) 88.7 % (43.0-81.0); PLATELET COUNT (AUTO) 276 /CMM (150-450); RED BLOOD CELL COUNT(AUTO) 4.47 MIL/uL (4.5-6.0); WHITE BLOOD COUNT (AUTO) 21.9 K/uL (4.3-11.0)
[2016-11-16 04:53] LABS: CALCIUM, SERUM 7.9 mg/dL (8.5-10.1); POTASSIUM 4.3 mmol/L (3.5-5.1)
[2016-11-16 05:07] LABS: LACTIC ACID 1.4 mmol/L (0.4-2.0)
[2016-11-16 05:08] LABS: THYROID STIMULATING HORMONE 0.696 uIU/mL (0.358-3.74)
[2016-11-16 05:16] LABS: INR 2.96 (0.87-1.13); PROTHROMBIN TIME 32.3 SECS (9.5-12.7)
[2016-11-16] MEDS ORDERED: FUROSEMIDE 40 MG/4 ML VIAL ONE (06:21)
[2016-11-16] MEDS: FUROSEMIDE 40 MG/4 ML VIAL IV SCH ×3 (06:27→13:59)
[2016-11-16] MEDS: DIVALPROEX SODIUM 500 MG TABLET.DR PO SCH ×2 (08:09→21:01)
[2016-11-16] MEDS: MULTIVIT, IRON, MIN NO. 8, FA 1 TAB TABLET PO SCH (08:09)
[2016-11-16] MEDS: LINEZOLID RTU BAG 600 MG in PREMIX 1 EA IV SCH ×2 (08:10→20:11)
[2016-11-16] MEDS: PANTOPRAZOLE 40 MG TABLET.DR PO SCH (08:10)
[2016-11-16] MEDS: FOLIC ACID 1 MG TABLET PO SCH (08:12)
[2016-11-16] MEDS: THIAMINE HCL 100 MG TABLET PO SCH (08:12)
[2016-11-16] MEDS ORDERED: Medication Not On Formulary EA (Dextromethorphan Hbr/Quinidine (Nuedexta 20-10 Mg Capsul PO SCH (09:00)
[2016-11-16] MEDS ORDERED: Magnesium 1GM/D5W 100ML PREMIX 100 ML IV SCH (10:00)
[2016-11-16] MEDS ORDERED: SECONDARY IV SET 1 EA INFUS.SET MC ONE (10:23)
[2016-11-16] MEDS: Magnesium 1GM/D5W 100ML PREMIX 100 ML IV SCH ×3 (10:47→13:57)
[2016-11-16] MEDS: HYDROCODONE/APAP 5/325MG 1 EACH TABLET PO PRN (11:38)
[2016-11-16] MEDS ORDERED: DEXTROSE 50%-WATER 50 ML DISP.SYRIN IV PRN (14:30)
[2016-11-16] MEDS ORDERED: WARFARIN SODIUM 1 MG TABLET PO SCH (17:00)
[2016-11-16] MEDS ORDERED: LACTOBACILLUS RHAMNOSUS GG 1 EACH CAP.SPRINK PO SCH (17:00)
[2016-11-16] MEDS: clonazePAM 0.5 MG TABLET PO PRN ×2 (17:09→21:00)
[2016-11-16] MEDS: BLOOD SUGAR DIAGNOSTIC 1 EACH STRIP VI SCH ×2 (17:11→21:15)
[2016-11-16] MEDS: *INSULIN REGULAR(HUMULIN R)HUM 100 UNIT/ML VIAL SQ PRN (18:20)
[2016-11-16] MEDS: QUETIAPINE FUMARATE 25 MG TABLET PO SCH (21:01)
[2016-11-16] MEDS: INSULIN REGULAR, HUMAN 100 UNIT/ML 3 ML VIAL SQ PRN (21:12)
[2016-11-16] MEDS ORDERED: SIMVASTATIN 10 MG TABLET PO SCH (22:00)
[2016-11-17] VITALS (21 sets, daily range): BP systolic 82–120; BP diastolic 23–77
[2016-11-17] MEDS: QUETIAPINE FUMARATE 25 MG TABLET PO PRN (00:35)
[2016-11-17] MEDS: IPRATROPIUM NEB FS 0.5 MG/2.5 ML AMPUL.NEB NEB SCH ×4 (03:30→14:48)
[2016-11-17 04:54] LABS: BASOPHILS % (AUTO) 0.2 % (0.0-2.0); DIFF TOTAL % 100 %; EOSINOPHILS # (AUTO) 0.1 /CMM (0.0-0.7); EOSINOPHILS % (AUTO) 0.5 % (0.0-6.0); HEMATOCRIT 29 % (39-51); HEMOGLOBIN 9.3 g/dL (13.5-17.5); LYMPHOCYTES # (AUTO) 0.8 /CMM (0.8-4.8); LYMPHOCYTES % (AUTO) 6.6 % (20.0-44.0); MEAN CORPUSCULAR HEMOGLOBIN 24 PG (26.0-33.0); MEAN CORPUSCULAR HGB CONC 32 g/dl (31.0-36.0); MEAN CORPUSCULAR VOLUME 77 fL (80-96); MONOCYTES # (AUTO) 1.3 /CMM (0.1-1.30); MONOCYTES % (AUTO) 10.2 % (2.0-12.0); NEUTROPHILS # (AUTO) 10.2 /CMM (1.8-8.9); NEUTROPHILS % (AUTO) 82.5 % (43.0-81.0); PLATELET COUNT (AUTO) 219 /CMM (150-450); RED BLOOD CELL COUNT(AUTO) 3.83 MIL/uL (4.5-6.0); WHITE BLOOD COUNT (AUTO) 12.3 K/uL (4.3-11.0)
[2016-11-17 05:05] LABS: ALBUMIN 2.1 g/dL (3.4-5.0); BILIRUBIN,TOTAL 0.6 mg/dL (0.2-1.0); CALCIUM, SERUM 7.9 mg/dL (8.5-10.1); CREATININE 1.2 mg/dL (0.6-1.3); PHOSPHORUS 2.9 mg/dL (2.5-4.9); POTASSIUM 4.1 mmol/L (3.5-5.1); TOTAL PROTEIN, SERUM 5.1 g/dL (6.4-8.2)
[2016-11-17 05:10] LABS: TROPONIN I 0.044 ng/mL (0.00-0.056)
[2016-11-17 05:18] LABS: IRON, SERUM 17 ug/dl (50-175); PERCENT SATURATION 6 % (14-33); TOTAL IRON BINDING CAPACITY 269 ug/dl (250-450)
[2016-11-17] MEDS: MEROPENEM 1 G in IV NS 0.9% 100 ML IV SCH ×3 (05:32→20:41)
[2016-11-17 06:15] LABS: INR 3.47 (0.87-1.13)
[2016-11-17] MEDS: BLOOD SUGAR DIAGNOSTIC 1 EACH STRIP VI SCH ×4 (06:30→21:25)
[2016-11-17] MEDS: FOLIC ACID 1 MG TABLET PO SCH (08:04)
[2016-11-17] MEDS: DIVALPROEX SODIUM 500 MG TABLET.DR PO SCH ×2 (08:04→22:18)
[2016-11-17] MEDS: MULTIVIT, IRON, MIN NO. 8, FA 1 TAB TABLET PO SCH (08:04)
[2016-11-17] MEDS: PANTOPRAZOLE 40 MG TABLET.DR PO SCH (08:05)
[2016-11-17] MEDS: THIAMINE HCL 100 MG TABLET PO SCH (08:09)
[2016-11-17] MEDS: FUROSEMIDE 100 MG/10 ML VIAL IV SCH ×3 (08:10→15:41)
[2016-11-17] MEDS: LINEZOLID RTU BAG 600 MG in PREMIX 1 EA IV SCH ×2 (08:12→21:20)
[2016-11-17] MEDS: SOD FERRIC GLUC 125 MG in IV NS 0.9% 100 ML IV SCH (14:26)
[2016-11-17] MEDS: QUETIAPINE FUMARATE 25 MG TABLET PO SCH (22:18)
[2016-11-18] VITALS: BP 95/75
[2016-11-18] MEDS: clonazePAM 0.5 MG TABLET PO PRN ×2 (00:44→22:34)
[2016-11-18 04:00] VITALS: BP 97/56
[2016-11-18] MEDS: QUETIAPINE FUMARATE 25 MG TABLET PO PRN (04:36)
[2016-11-18] MEDS: MEROPENEM 1 G in IV NS 0.9% 100 ML IV SCH ×3 (05:14→21:30)
[2016-11-18] MEDS: BLOOD SUGAR DIAGNOSTIC 1 EACH STRIP VI SCH ×4 (06:48→21:31)
[2016-11-18 06:50] VITALS: BP 109/54
[2016-11-18] MEDS: PANTOPRAZOLE 40 MG TABLET.DR PO SCH (07:30)
[2016-11-18] MEDS: DIVALPROEX SODIUM 500 MG TABLET.DR PO SCH ×2 (09:34→21:31)
[2016-11-18] MEDS: THIAMINE HCL 100 MG TABLET PO SCH (09:35)
[2016-11-18] MEDS: MULTIVIT, IRON, MIN NO. 8, FA 1 TAB TABLET PO SCH (09:35)
[2016-11-18] MEDS: FOLIC ACID 1 MG TABLET PO SCH (09:35)
[2016-11-18] MEDS: LINEZOLID RTU BAG 600 MG in PREMIX 1 EA IV SCH ×2 (09:38→20:57)
[2016-11-18] MEDS: INSULIN REGULAR, HUMAN 100 UNIT/ML 3 ML VIAL SQ PRN (12:23)
[2016-11-18 12:51] LABS: BASOPHILS # (AUTO) 0.1 /CMM (0.0-0.2); BASOPHILS % (AUTO) 0.4 % (0.0-2.0); DIFF TOTAL % 100 %; EOSINOPHILS # (AUTO) 0.1 /CMM (0.0-0.7); EOSINOPHILS % (AUTO) 0.9 % (0.0-6.0); HEMATOCRIT 32 % (39-51); HEMOGLOBIN 9.9 g/dL (13.5-17.5); LYMPHOCYTES # (AUTO) 0.5 /CMM (0.8-4.8); LYMPHOCYTES % (AUTO) 3.8 % (20.0-44.0); MEAN CORPUSCULAR HEMOGLOBIN 24 PG (26.0-33.0); MEAN CORPUSCULAR HGB CONC 31 g/dl (31.0-36.0); MEAN CORPUSCULAR VOLUME 76 fL (80-96); MONOCYTES # (AUTO) 0.8 /CMM (0.1-1.30); MONOCYTES % (AUTO) 5.7 % (2.0-12.0); NEUTROPHILS # (AUTO) 12.7 /CMM (1.8-8.9); NEUTROPHILS % (AUTO) 89.2 % (43.0-81.0); PLATELET COUNT (AUTO) 226 /CMM (150-450); RED BLOOD CELL COUNT(AUTO) 4.17 MIL/uL (4.5-6.0); WHITE BLOOD COUNT (AUTO) 14.3 K/uL (4.3-11.0)
[2016-11-18 12:54] LABS: CALCIUM, SERUM 7.7 mg/dL (8.5-10.1); POTASSIUM 3.6 mmol/L (3.5-5.1)
[2016-11-18 13:07] LABS: INR 3.16 (0.87-1.13); PROTHROMBIN TIME 34.5 SECS (9.5-12.7)
[2016-11-18] MEDS: HYDROCODONE/APAP 5/325MG 1 EACH TABLET PO PRN ×2 (13:18→14:58)
[2016-11-18] MEDS: SOD FERRIC GLUC 125 MG in IV NS 0.9% 100 ML IV SCH (15:14)
[2016-11-18] MEDS: Magnesium 1GM/D5W 100ML PREMIX 100 ML IV SCH ×4 (15:25→20:48)
[2016-11-18 16:00] VITALS: BP 105/60
[2016-11-18] MEDS ORDERED: SECONDARY IV SET 1 EA INFUS.SET MC ONE (16:08)
[2016-11-18] MEDS: IPRATROPIUM NEB FS 0.5 MG/2.5 ML AMPUL.NEB NEB SCH ×3 (16:30→23:34)
[2016-11-18 20:00] VITALS: BP 101/62
[2016-11-18] MEDS ORDERED: IV SET PRIMARY PUMP SET 1 EA INFUS.SET MC ONE (20:42)
[2016-11-18] MEDS: QUETIAPINE FUMARATE 25 MG TABLET PO SCH (21:31)
[2016-11-18] MEDS: *INSULIN REGULAR(HUMULIN R)HUM 100 UNIT/ML VIAL SQ PRN (21:44)
[2016-11-19] MEDS: IPRATROPIUM NEB FS 0.5 MG/2.5 ML AMPUL.NEB NEB SCH ×6 (03:39→23:31)
[2016-11-19] MEDS: MEROPENEM 1 G in IV NS 0.9% 100 ML IV SCH (04:37)
[2016-11-19 06:19] LABS: BASOPHILS % (AUTO) 0.1 % (0.0-2.0); DIFF TOTAL % 100 %; EOSINOPHILS # (AUTO) 0.3 /CMM (0.0-0.7); EOSINOPHILS % (AUTO) 2.6 % (0.0-6.0); HEMATOCRIT 33 % (39-51); HEMOGLOBIN 10.7 g/dL (13.5-17.5); LYMPHOCYTES # (AUTO) 1.4 /CMM (0.8-4.8); MEAN CORPUSCULAR HEMOGLOBIN 25 PG (26.0-33.0); MEAN CORPUSCULAR HGB CONC 32 g/dl (31.0-36.0); MEAN CORPUSCULAR VOLUME 77 fL (80-96); MONOCYTES # (AUTO) 0.9 /CMM (0.1-1.30); NEUTROPHILS % (AUTO) 79.3 % (43.0-81.0); PLATELET COUNT (AUTO) 261 /CMM (150-450); RED BLOOD CELL COUNT(AUTO) 4.35 MIL/uL (4.5-6.0); WHITE BLOOD COUNT (AUTO) 12.6 K/uL (4.3-11.0)
[2016-11-19] MEDS: BLOOD SUGAR DIAGNOSTIC 1 EACH STRIP VI SCH ×4 (06:34→21:16)
[2016-11-19 06:36] LABS: POTASSIUM 3.7 mmol/L (3.5-5.1)
[2016-11-19] MEDS: PANTOPRAZOLE 40 MG TABLET.DR PO SCH (06:38)
[2016-11-19 06:43] LABS: INR 1.86 (0.87-1.13); PROTHROMBIN TIME 20.2 SECS (9.5-12.7)
[2016-11-19] MEDS: ALBUTEROL FS 2.5 MG/0.5 ML VIAL.NEB NEB PRN (07:39)
[2016-11-19 08:00] VITALS: BP 100/75
[2016-11-19] MEDS: THIAMINE HCL 100 MG TABLET PO SCH (08:31)
[2016-11-19] MEDS: FOLIC ACID 1 MG TABLET PO SCH (08:31)
[2016-11-19] MEDS: MULTIVIT, IRON, MIN NO. 8, FA 1 TAB TABLET PO SCH (08:31)
[2016-11-19] MEDS: LINEZOLID RTU BAG 600 MG in PREMIX 1 EA IV SCH (08:31)
[2016-11-19] MEDS: DIVALPROEX SODIUM 500 MG TABLET.DR PO SCH ×2 (08:31→21:17)
[2016-11-19] MEDS: *INSULIN REGULAR(HUMULIN R)HUM 100 UNIT/ML VIAL SQ PRN ×2 (12:21→21:19)
[2016-11-19] MEDS: SOD FERRIC GLUC 125 MG in IV NS 0.9% 100 ML IV SCH (14:11)
[2016-11-19 16:00] VITALS: BP 125/69
[2016-11-19] MEDS: diphenhydrAMINE HCL ELIX 25 MG/10 ML UDC PO PRN (17:09)
[2016-11-19] MEDS: WARFARIN SODIUM 1 MG TABLET PO SCH (17:10)
[2016-11-19] MEDS: QUETIAPINE FUMARATE 25 MG TABLET PO PRN (18:10)
[2016-11-19 20:00] VITALS: BP 110/60
[2016-11-19] MEDS: QUETIAPINE FUMARATE 25 MG TABLET PO SCH (21:17)
[2016-11-19] MEDS: clonazePAM 0.5 MG TABLET PO PRN (22:46)
[2016-11-20] MEDS: IPRATROPIUM NEB FS 0.5 MG/2.5 ML AMPUL.NEB NEB SCH ×5 (03:08→19:30)
[2016-11-20] MEDS: BLOOD SUGAR DIAGNOSTIC 1 EACH STRIP VI SCH ×4 (06:22→22:16)
[2016-11-20] MEDS: INSULIN REGULAR, HUMAN 100 UNIT/ML 3 ML VIAL SQ PRN ×3 (06:23→17:27)
[2016-11-20 07:06] LABS: CALCIUM, SERUM 8.3 mg/dL (8.5-10.1); POTASSIUM 3.9 mmol/L (3.5-5.1)
[2016-11-20 07:08] LABS: BASOPHILS % (AUTO) 0.4 % (0.0-2.0); EOSINOPHILS # (AUTO) 0.4 /CMM (0.0-0.7); EOSINOPHILS % (AUTO) 3.4 % (0.0-6.0); HEMATOCRIT 33 % (39-51); HEMOGLOBIN 10.3 g/dL (13.5-17.5); LYMPHOCYTES % (AUTO) 8.3 % (20.0-44.0); MEAN CORPUSCULAR HEMOGLOBIN 24 PG (26.0-33.0); MEAN CORPUSCULAR HGB CONC 32 g/dl (31.0-36.0); MEAN CORPUSCULAR VOLUME 77 fL (80-96); MONOCYTES # (AUTO) 1.1 /CMM (0.1-1.30); MONOCYTES % (AUTO) 8.7 % (2.0-12.0); NEUTROPHILS # (AUTO) 9.6 /CMM (1.8-8.9); NEUTROPHILS % (AUTO) 79.2 % (43.0-81.0); PLATELET COUNT (AUTO) 265 /CMM (150-450); RED BLOOD CELL COUNT(AUTO) 4.25 MIL/uL (4.5-6.0); WHITE BLOOD COUNT (AUTO) 12.1 K/uL (4.3-11.0)
[2016-11-20 07:14] LABS: *SPE ALBUMIN 2.3 g/dL (2.9-4.4)
[2016-11-20 07:58] LABS: DIFF TOTAL % 100 %
[2016-11-20 08:00] VITALS: BP 114/71
[2016-11-20] MEDS: PANTOPRAZOLE 40 MG TABLET.DR PO SCH (09:22)
[2016-11-20] MEDS: DIVALPROEX SODIUM 500 MG TABLET.DR PO SCH ×2 (09:22→22:10)
[2016-11-20] MEDS: FOLIC ACID 1 MG TABLET PO SCH (09:22)
[2016-11-20] MEDS: MULTIVIT, IRON, MIN NO. 8, FA 1 TAB TABLET PO SCH (09:23)
[2016-11-20] MEDS: THIAMINE HCL 100 MG TABLET PO SCH (09:23)
[2016-11-20] MEDS: SOD FERRIC GLUC 125 MG in IV NS 0.9% 100 ML IV SCH (15:27)
[2016-11-20 16:00] VITALS: BP 104/70
[2016-11-20] MEDS: clonazePAM 0.5 MG TABLET PO PRN (17:25)
[2016-11-20] MEDS: HYDROCODONE/APAP 5/325MG 1 EACH TABLET PO PRN ×2 (17:25→22:30)
[2016-11-20 17:31] LABS: INR 1.36 (0.87-1.13); PROTHROMBIN TIME 14.7 SECS (9.5-12.7)
[2016-11-20] MEDS: WARFARIN SODIUM 1 MG TABLET PO SCH (18:06)
[2016-11-20] MEDS: diphenhydrAMINE HCL ELIX 25 MG/10 ML UDC PO PRN (18:10)
[2016-11-20] MEDS: QUETIAPINE FUMARATE 25 MG TABLET PO PRN (18:10)
[2016-11-20 20:00] VITALS: BP 113/67
[2016-11-20 20:45] VITALS: BP 113/67
[2016-11-20] MEDS: QUETIAPINE FUMARATE 25 MG TABLET PO SCH (22:11)
[2016-11-20] MEDS: *INSULIN REGULAR(HUMULIN R)HUM 100 UNIT/ML VIAL SQ PRN (22:26)
[2016-11-21] MEDS: ALBUTEROL FS 2.5 MG/0.5 ML VIAL.NEB NEB PRN ×3 (00:07→11:32)
[2016-11-21] MEDS: IPRATROPIUM NEB FS 0.5 MG/2.5 ML AMPUL.NEB NEB SCH ×5 (00:07→15:02)
[2016-11-21] MEDS: diphenhydrAMINE HCL ELIX 25 MG/10 ML UDC PO PRN ×3 (02:04→17:11)
[2016-11-21] MEDS: BLOOD SUGAR DIAGNOSTIC 1 EACH STRIP VI SCH ×3 (06:55→17:09)
[2016-11-21 07:32] LABS: BASOPHILS % (AUTO) 0.2 % (0.0-2.0); DIFF TOTAL % 100 %; EOSINOPHILS # (AUTO) 0.3 /CMM (0.0-0.7); EOSINOPHILS % (AUTO) 2.8 % (0.0-6.0); HEMATOCRIT 30 % (39-51); HEMOGLOBIN 9.6 g/dL (13.5-17.5); LYMPHOCYTES # (AUTO) 1.1 /CMM (0.8-4.8); LYMPHOCYTES % (AUTO) 10.4 % (20.0-44.0); MEAN CORPUSCULAR HEMOGLOBIN 24 PG (26.0-33.0); MEAN CORPUSCULAR HGB CONC 32 g/dl (31.0-36.0); MEAN CORPUSCULAR VOLUME 77 fL (80-96); MONOCYTES # (AUTO) 0.7 /CMM (0.1-1.30); NEUTROPHILS # (AUTO) 8.2 /CMM (1.8-8.9); NEUTROPHILS % (AUTO) 79.6 % (43.0-81.0); PLATELET COUNT (AUTO) 221 /CMM (150-450); RED BLOOD CELL COUNT(AUTO) 3.92 MIL/uL (4.5-6.0); WHITE BLOOD COUNT (AUTO) 10.3 K/uL (4.3-11.0)
[2016-11-21 08:00] VITALS: BP 107/76
[2016-11-21 08:05] LABS: CALCIUM, SERUM 7.9 mg/dL (8.5-10.1); CREATININE 0.8 mg/dL (0.6-1.3); PHOSPHORUS 2.6 mg/dL (2.5-4.9); POTASSIUM 3.6 mmol/L (3.5-5.1)
[2016-11-21] MEDS ORDERED: QUETIAPINE FUMARATE 25 MG TABLET PO SCH (09:00)
[2016-11-21] MEDS: FOLIC ACID 1 MG TABLET PO SCH (09:41)
[2016-11-21] MEDS: THIAMINE HCL 100 MG TABLET PO SCH (09:41)
[2016-11-21] MEDS: DIVALPROEX SODIUM 500 MG TABLET.DR PO SCH (09:42)
[2016-11-21] MEDS: MULTIVIT, IRON, MIN NO. 8, FA 1 TAB TABLET PO SCH (09:42)
[2016-11-21] MEDS: PANTOPRAZOLE 40 MG TABLET.DR PO SCH (09:42)
[2016-11-21] MEDS: HYDROCODONE/APAP 5/325MG 1 EACH TABLET PO PRN (09:45)
[2016-11-21] MEDS ORDERED: ENOX40DI SQ (10:46)
[2016-11-21 12:42] LABS: INR 1.45 (0.87-1.13); PROTHROMBIN TIME 15.7 SECS (9.5-12.7)
[2016-11-21] MEDS: SOD FERRIC GLUC 125 MG in IV NS 0.9% 100 ML IV SCH (15:04)
[2016-11-21 15:53] VITALS: BP 103/73
[2016-11-21 16:00] VITALS: BP 103/73
[2016-11-21] MEDS: WARFARIN SODIUM 1 MG TABLET PO SCH (17:08)
[2016-11-21] MEDS ORDERED: NEO/BACI/POLY B/HC OINT (15GM) 15 GM TUBE TP SCH (17:30)
== END 2016-11-21 19:00 | DRG 871 ==
LOC: ER 13:59 → ICU 17:30 → TELE 11-17 17:21 → MED 11-18 08:11
PROVIDERS: ADMIT Student in an Organized Health Care Education/Training Program; ATTEND Student in an Organized Health Care Education/Training Program
PROC: 5A09357 Assistance with Respiratory Ventilation, Less than 24 Consecutive Hours, Continuous Positive Airway Pressure (ICD-10-PCS; principal; 2016-11-15)
PROC: 05H533Z Insertion of Infusion Device into Right Subclavian Vein, Percutaneous Approach (ICD-10-PCS; 2016-11-15)
DX: A41.9 Sepsis, unspecified organism (principal); J96.01 Acute respiratory failure with hypoxia; R65.21 Severe sepsis with septic shock; G92 Toxic encephalopathy; J69.0 Pneumonitis due to inhalation of food and vomit; D68.9 Coagulation defect, unspecified; E87.0 Hyperosmolality and hypernatremia; F05 Delirium due to known physiological condition; I13.0 Hypertensive heart and chronic kidney disease with heart failure and stage 1 through stage 4 chronic kidney disease, or unspecified chronic kidney disease; D50.9 Iron deficiency anemia, unspecified; E78.5 Hyperlipidemia, unspecified; I25.10 Atherosclerotic heart disease of native coronary artery without angina pectoris; K21.9 Gastro-esophageal reflux disease without esophagitis; I50.9 Heart failure, unspecified; Z86.73 Personal history of transient ischemic attack (TIA), and cerebral infarction without residual deficits; E11.9 Type 2 diabetes mellitus without complications; E83.42 Hypomagnesemia; I48.2 Chronic atrial fibrillation; Z79.01 Long term (current) use of anticoagulants; Z87.01 Personal history of pneumonia (recurrent); Z87.440 Personal history of urinary (tract) infections; Z87.891 Personal history of nicotine dependence; Z95.1 Presence of aortocoronary bypass graft; Z95.2 Presence of prosthetic heart valve; I34.2 Nonrheumatic mitral (valve) stenosis; F01.50 Vascular dementia, unspecified severity, without behavioral disturbance, psychotic disturbance, mood disturbance, and anxiety; F19.90 Other psychoactive substance use, unspecified, uncomplicated; F41.9 Anxiety disorder, unspecified; F20.9 Schizophrenia, unspecified; Z88.8 Allergy status to other drugs, medicaments and biological substances
CPT/HCPCS: 36415; 36600; 71010-TC; 80048-TC; 80053-TC; 80061-TC; 80076-TC; 81000-TC; 82140-TC; 82728-TC; 82962-TC; 83540-TC; 83605-TC; 83735-TC; 83880; 84100-TC; 84155; 84165; 84443-TC; 84484-TC; 85025-TC; 85385-TC; 85610-TC; 85730-TC; 87040-TC; 87081-TC; 87086-TC; 87186-TC; 87400; 94799-TC; 97001-TC; A4216; A4606; A6403; C1751; J1815; J1940; J1956; J2020; J2185; J2405; J2916; J3475; J3490; J7030; J7050; J7060; Q0163; Z7610

== ENCOUNTER 2016-11-21 20:25 | Inpatient (IN) | payer MEDICARE, OTHER ==
[~2016-11-21] VITALS: Ht 182.9 cm; Wt 88.5 kg
[~2016-11-21 20:25] MED LIST changes: +ENOX40DI SQ
[2016-11-21 20:30] VITALS: BP 111/72
[2016-11-21] MEDS ORDERED: MAG HYDROX/AL HYDROX/SIMETH 30 ML UDC PO PRN (21:30)
[2016-11-21] MEDS ORDERED: MAGNESIUM HYDROXIDE 30 ML UDC PO PRN (21:30)
[2016-11-21] MEDS ORDERED: ACETAMINOPHEN 325 MG TABLET PO PRN (21:30)
[2016-11-21] MEDS ORDERED: QUETIAPINE FUMARATE 25 MG TABLET PO SCH (22:00)
[2016-11-21] MEDS ORDERED: DEXTROSE 50%-WATER 50 ML DISP.SYRIN IV PRN (22:00)
[2016-11-21] MEDS: BLOOD SUGAR DIAGNOSTIC 1 EACH STRIP VI SCH (22:06)
[2016-11-21] MEDS: *INSULIN REGULAR(HUMULIN R)HUM 100 UNIT/ML VIAL SQ PRN (22:12)
[2016-11-21] MEDS ORDERED: QUETIAPINE FUMARATE 25 MG TABLET ONE (22:14)
[2016-11-21] MEDS ORDERED: HYDROCODONE/APAP 5/325MG 1 EACH TABLET ONE (23:06)
[2016-11-21] MEDS: HYDROCODONE/APAP 5/325MG 1 EACH TABLET PO PRN (23:09)
[2016-11-21] MEDS ORDERED: IPRATROPIUM NEB FS 0.5 MG/2.5 ML AMPUL.NEB NEB PRN (23:30)
[2016-11-21] MEDS ORDERED: IPRATROPIUM NEB FS 0.5 MG/2.5 ML AMPUL.NEB NEB SCH (23:30)
[2016-11-21] MEDS ORDERED: ALBUTEROL FS 2.5 MG/0.5 ML VIAL.NEB NEB PRN (23:30)
[2016-11-21] MEDS ORDERED: ALBUTEROL FS 2.5 MG/0.5 ML VIAL.NEB NEB SCH (23:30)
[2016-11-22] MEDS ORDERED: LORAZEPAM 0.5 MG TABLET ONE (00:40)
[2016-11-22] MEDS: LORAZEPAM 0.5 MG TABLET PO PRN (00:43)
[2016-11-22] MEDS ORDERED: Z GUARD REMEDY 4 OZ OINT TP PRN (06:00)
[2016-11-22] MEDS: BLOOD SUGAR DIAGNOSTIC 1 EACH STRIP VI SCH ×4 (06:47→22:11)
[2016-11-22 08:37] VITALS: BP 133/77
[2016-11-22] MEDS ORDERED: Z GUARD REMEDY 2 OZ OINT TP PRN ×2 (10:00)
[2016-11-22] MEDS: QUETIAPINE FUMARATE 25 MG TABLET PO SCH ×2 (11:14→17:33)
[2016-11-22] MEDS: CLOTRIMAZOLE 1% 15 GM TUBE TP SCH ×2 (14:28→17:37)
[2016-11-22] MEDS ORDERED: ACETAMINOPHEN 325 MG TABLET PO SCH (14:30)
[2016-11-22] MEDS ORDERED: GLUCAGON,HUMAN RECOMBINANT 1 MG/VIAL VIAL IM PRN (14:30)
[2016-11-22] MEDS ORDERED: BISACODYL SUPP (10 MG) 10 MG/SUPP.RECT SUPP.RECT RC PRN (14:30)
[2016-11-22] MEDS ORDERED: *INSULIN REGULAR(HUMULIN R)HUM 100 UNIT/ML VIAL SQ PRN (14:30)
[2016-11-22] MEDS ORDERED: INSULIN REGULAR, HUMAN 100 UNIT/ML 3 ML VIAL SQ PRN (14:30)
[2016-11-22] MEDS ORDERED: DEXTROSE 50%-WATER 50 ML DISP.SYRIN IV PRN (14:30)
[2016-11-22] MEDS ORDERED: MAGNESIUM HYDROXIDE 30 ML UDC PO PRN (14:30)
[2016-11-22 15:36] LABS: INR 1.67 (0.87-1.13); PROTHROMBIN TIME 17.5 SECS (9.5-12.7)
[2016-11-22 16:00] VITALS: BP 123/86
[2016-11-22] MEDS ORDERED: BLOOD SUGAR DIAGNOSTIC 1 EACH STRIP VI SCH (17:30)
[2016-11-22] MEDS: CARVEDILOL 6.25 MG TABLET PO SCH (17:34)
[2016-11-22] MEDS: Z GUARD REMEDY 4 OZ OINT TP SCH (17:36)
[2016-11-22] MEDS: WARFARIN SODIUM 1 MG TABLET PO SCH (18:34)
[2016-11-22 19:41] VITALS: BP 130/75
[2016-11-22] MEDS ORDERED: ENOXAPARIN SODIUM 40 MG/0.4 ML DISP.SYRIN SQ SCH ×2 (21:00)
[2016-11-22] MEDS ORDERED: DIVALPROEX SODIUM 500 MG TABLET.DR PO SCH (22:00)
[2016-11-22] MEDS ORDERED: QUETIAPINE FUMARATE 25 MG TABLET PO SCH (22:00)
[2016-11-22] MEDS ORDERED: INSULIN DETEMIR 100 UNIT/ML CARTRIDGE SQ SCH (22:00)
[2016-11-22] MEDS ORDERED: DIVALPROEX SODIUM 1000 MG PO SCH (22:00)
[2016-11-22] MEDS: SIMVASTATIN 10 MG TABLET PO SCH (22:09)
[2016-11-22] MEDS: *INSULIN REGULAR(HUMULIN R)HUM 100 UNIT/ML VIAL SQ PRN (22:11)
[2016-11-23] MEDS: Z GUARD REMEDY 4 OZ OINT TP SCH ×2 (06:56→17:37)
[2016-11-23] MEDS: BLOOD SUGAR DIAGNOSTIC 1 EACH STRIP VI SCH ×4 (07:43→22:00)
[2016-11-23 08:00] VITALS: BP 100/68
[2016-11-23] MEDS ORDERED: DEXTROSE 50%-WATER 50 ML DISP.SYRIN IVP ONE (09:00)
[2016-11-23] MEDS ORDERED: ENOXAPARIN SODIUM 30 MG/0.3 ML DISP.SYRIN SQ SCH ×2 (09:00→21:00)
[2016-11-23] MEDS ORDERED: Medication Not On Formulary EA (Omeprazole 40 MG) PO SCH (09:00)
[2016-11-23] MEDS: ASCORBIC ACID 500 MG TABLET PO SCH (10:35)
[2016-11-23] MEDS: THIAMINE HCL 100 MG TABLET PO SCH (10:35)
[2016-11-23] MEDS: MULTIVITAMINS,THERAPEUTIC 1 UDTAB TABLET PO SCH (10:39)
[2016-11-23] MEDS: PANTOPRAZOLE 40 MG TABLET.DR PO SCH (10:39)
[2016-11-23] MEDS: DIVALPROEX SODIUM 500 MG TABLET.DR PO SCH ×3 (10:40→21:24)
[2016-11-23] MEDS: clonazePAM 0.5 MG TABLET PO SCH (10:40)
[2016-11-23] MEDS: FOLIC ACID 1 MG TABLET PO SCH (10:40)
[2016-11-23] MEDS: QUETIAPINE FUMARATE 25 MG TABLET PO SCH ×2 (10:40→17:10)
[2016-11-23] MEDS: CARVEDILOL 6.25 MG TABLET PO SCH ×2 (10:40→17:10)
[2016-11-23] MEDS: CLOTRIMAZOLE 1% 15 GM TUBE TP SCH ×2 (10:41→17:28)
[2016-11-23 11:05] VITALS: BP 149/87
[2016-11-23] MEDS: INSULIN REGULAR, HUMAN 100 UNIT/ML 3 ML VIAL SQ PRN ×2 (12:18→17:44)
[2016-11-23] MEDS: FUROSEMIDE 40 MG TABLET PO SCH (14:26)
[2016-11-23 16:00] VITALS: BP 114/80
[2016-11-23] MEDS ORDERED: WARFARIN SODIUM 1 MG TABLET PO SCH (17:00)
[2016-11-23 17:15] LABS: INR 2.58 (0.87-1.13); PROTHROMBIN TIME 28.1 SECS (9.5-12.7)
[2016-11-23] MEDS: WARFARIN SODIUM 1 MG TABLET PO SCH (17:37)
[2016-11-23 20:00] VITALS: BP 123/84
[2016-11-23] MEDS ORDERED: QUETIAPINE FUMARATE 25 MG TABLET PO SCH ×2 (20:30→22:00)
[2016-11-23] MEDS: SIMVASTATIN 10 MG TABLET PO SCH (21:23)
[2016-11-24] MEDS: LORAZEPAM 0.5 MG TABLET PO PRN ×2 (03:00→20:01)
[2016-11-24] MEDS: HYDROCODONE/APAP 5/325MG 1 EACH TABLET PO PRN (04:02)
[2016-11-24] MEDS: Z GUARD REMEDY 4 OZ OINT TP SCH ×2 (05:22→17:34)
[2016-11-24 08:00] VITALS: BP 128/76
[2016-11-24] MEDS: PANTOPRAZOLE 40 MG TABLET.DR PO SCH (08:10)
[2016-11-24] MEDS: FOLIC ACID 1 MG TABLET PO SCH (08:10)
[2016-11-24] MEDS: CARVEDILOL 6.25 MG TABLET PO SCH ×2 (08:10→17:21)
[2016-11-24] MEDS: THIAMINE HCL 100 MG TABLET PO SCH (08:11)
[2016-11-24] MEDS: FUROSEMIDE 40 MG TABLET PO SCH (08:11)
[2016-11-24] MEDS: clonazePAM 0.5 MG TABLET PO SCH (08:11)
[2016-11-24] MEDS: MULTIVITAMINS,THERAPEUTIC 1 UDTAB TABLET PO SCH (08:11)
[2016-11-24] MEDS: ASCORBIC ACID 500 MG TABLET PO SCH (08:11)
[2016-11-24] MEDS: QUETIAPINE FUMARATE 25 MG TABLET PO SCH ×2 (08:11→17:21)
[2016-11-24] MEDS: BLOOD SUGAR DIAGNOSTIC 1 EACH STRIP VI SCH ×4 (08:11→22:00)
[2016-11-24] MEDS: DIVALPROEX SODIUM 500 MG TABLET.DR PO SCH (08:11)
[2016-11-24] MEDS: CLOTRIMAZOLE 1% 15 GM TUBE TP SCH ×2 (08:13→17:23)
[2016-11-24] MEDS: INSULIN REGULAR, HUMAN 100 UNIT/ML 3 ML VIAL SQ PRN (08:14)
[2016-11-24 09:49] LABS: INR 2.87 (0.87-1.13); PROTHROMBIN TIME 31.3 SECS (9.5-12.7)
[2016-11-24] MEDS ORDERED: QUETIAPINE FUMARATE 25 MG TABLET PO PRN (14:00)
[2016-11-24 16:05] VITALS: BP 111/69
[2016-11-24] MEDS: WARFARIN SODIUM 1 MG TABLET PO SCH (17:20)
[2016-11-24 20:00] VITALS: BP 122/54
[2016-11-24] MEDS: diphenhydrAMINE HCL 25 MG CAPSULE PO PRN (21:10)
[2016-11-24] MEDS: SIMVASTATIN 10 MG TABLET PO SCH (21:50)
[2016-11-24] MEDS ORDERED: DIVALPROEX SODIUM 250 MG TABLET.DR PO SCH (22:00)
[2016-11-24] MEDS ORDERED: QUETIAPINE FUMARATE 25 MG TABLET PO SCH ×2 (22:00)
[2016-11-25] MEDS: LORAZEPAM 0.5 MG TABLET PO PRN (02:14)
[2016-11-25] MEDS: BLOOD SUGAR DIAGNOSTIC 1 EACH STRIP VI SCH ×4 (07:46→21:44)
[2016-11-25] MEDS: Z GUARD REMEDY 4 OZ OINT TP SCH ×2 (07:47→17:58)
[2016-11-25 07:57] VITALS: BP 133/88
[2016-11-25] MEDS: PANTOPRAZOLE 40 MG TABLET.DR PO SCH (08:26)
[2016-11-25 08:39] LABS: INR 2.04 (0.87-1.13); PROTHROMBIN TIME 22.2 SECS (9.5-12.7)
[2016-11-25] MEDS: MULTIVITAMINS,THERAPEUTIC 1 UDTAB TABLET PO SCH (08:45)
[2016-11-25] MEDS: QUETIAPINE FUMARATE 25 MG TABLET PO SCH ×3 (08:45→21:22)
[2016-11-25] MEDS: THIAMINE HCL 100 MG TABLET PO SCH (08:45)
[2016-11-25] MEDS: DIVALPROEX SODIUM 500 MG TABLET.DR PO SCH ×2 (08:45→21:23)
[2016-11-25] MEDS: CARVEDILOL 6.25 MG TABLET PO SCH ×2 (08:46→17:55)
[2016-11-25] MEDS: ASCORBIC ACID 500 MG TABLET PO SCH (08:46)
[2016-11-25] MEDS: FOLIC ACID 1 MG TABLET PO SCH (08:46)
[2016-11-25] MEDS: FUROSEMIDE 40 MG TABLET PO SCH (08:46)
[2016-11-25] MEDS: clonazePAM 0.5 MG TABLET PO SCH (08:46)
[2016-11-25] MEDS: CLOTRIMAZOLE 1% 15 GM TUBE TP SCH ×2 (08:54→17:57)
[2016-11-25] MEDS: INSULIN REGULAR, HUMAN 100 UNIT/ML 3 ML VIAL SQ PRN (12:22)
[2016-11-25 16:10] VITALS: BP 139/79
[2016-11-25] MEDS: WARFARIN SODIUM 1 MG TABLET PO SCH (17:57)
[2016-11-25 19:47] VITALS: BP 128/89
[2016-11-25] MEDS: SIMVASTATIN 10 MG TABLET PO SCH (21:22)
[2016-11-25] MEDS: diphenhydrAMINE HCL 25 MG CAPSULE PO PRN (21:22)
[2016-11-26] MEDS: LORAZEPAM 0.5 MG TABLET PO PRN ×2 (00:37→22:33)
[2016-11-26] MEDS: Z GUARD REMEDY 4 OZ OINT TP SCH ×2 (06:00→18:07)
[2016-11-26] MEDS: BLOOD SUGAR DIAGNOSTIC 1 EACH STRIP VI SCH ×4 (07:30→21:46)
[2016-11-26] MEDS: PANTOPRAZOLE 40 MG TABLET.DR PO SCH (07:30)
[2016-11-26 08:00] VITALS: BP 122/69
[2016-11-26] MEDS: FOLIC ACID 1 MG TABLET PO SCH (09:00)
[2016-11-26 09:29] LABS: CALCIUM, SERUM 8.5 mg/dL (8.5-10.1); PHOSPHORUS 3.2 mg/dL (2.5-4.9); POTASSIUM 4.3 mmol/L (3.5-5.1)
[2016-11-26 09:35] LABS: BASOPHILS % (AUTO) 0.1 % (0.0-2.0); DIFF TOTAL % 100 %; EOSINOPHILS # (AUTO) 0.4 /CMM (0.0-0.7); HEMATOCRIT 33 % (39-51); HEMOGLOBIN 10.5 g/dL (13.5-17.5); LYMPHOCYTES # (AUTO) 0.9 /CMM (0.8-4.8); LYMPHOCYTES % (AUTO) 6.9 % (20.0-44.0); MEAN CORPUSCULAR HEMOGLOBIN 25 PG (26.0-33.0); MEAN CORPUSCULAR HGB CONC 32 g/dl (31.0-36.0); MEAN CORPUSCULAR VOLUME 78 fL (80-96); MONOCYTES # (AUTO) 0.7 /CMM (0.1-1.30); MONOCYTES % (AUTO) 5.3 % (2.0-12.0); NEUTROPHILS # (AUTO) 10.8 /CMM (1.8-8.9); NEUTROPHILS % (AUTO) 84.7 % (43.0-81.0); PLATELET COUNT (AUTO) 251 /CMM (150-450); RED BLOOD CELL COUNT(AUTO) 4.23 MIL/uL (4.5-6.0); WHITE BLOOD COUNT (AUTO) 12.7 K/uL (4.3-11.0)
[2016-11-26 09:39] LABS: INR 2.2 (0.87-1.13); PROTHROMBIN TIME 23.9 SECS (9.5-12.7)
[2016-11-26] MEDS: ASCORBIC ACID 500 MG TABLET PO SCH (09:41)
[2016-11-26] MEDS: FUROSEMIDE 40 MG TABLET PO SCH (09:41)
[2016-11-26] MEDS: THIAMINE HCL 100 MG TABLET PO SCH (09:41)
[2016-11-26] MEDS: DIVALPROEX SODIUM 500 MG TABLET.DR PO SCH ×2 (09:41→21:07)
[2016-11-26] MEDS: QUETIAPINE FUMARATE 25 MG TABLET PO SCH ×3 (09:42→21:07)
[2016-11-26] MEDS: CARVEDILOL 6.25 MG TABLET PO SCH ×2 (09:42→18:00)
[2016-11-26] MEDS: MULTIVITAMINS,THERAPEUTIC 1 UDTAB TABLET PO SCH (09:43)
[2016-11-26] MEDS: CLOTRIMAZOLE 1% 15 GM TUBE TP SCH ×2 (09:50→18:09)
[2016-11-26] MEDS ORDERED: MAGNESIUM OXIDE 400 MG TABLET PO ONE (11:30)
[2016-11-26 16:07] VITALS: BP 124/70
[2016-11-26] MEDS: WARFARIN SODIUM 1 MG TABLET PO SCH (18:06)
[2016-11-26] MEDS: INSULIN REGULAR, HUMAN 100 UNIT/ML 3 ML VIAL SQ PRN (18:19)
[2016-11-26 19:56] VITALS: BP 141/89
[2016-11-26] MEDS: SIMVASTATIN 10 MG TABLET PO SCH (21:07)
[2016-11-27] MEDS: diphenhydrAMINE HCL 25 MG CAPSULE PO PRN (00:44)
[2016-11-27] MEDS: Z GUARD REMEDY 4 OZ OINT TP SCH ×2 (05:59→17:41)
[2016-11-27 07:15] LABS: EOSINOPHILS # (AUTO) 0.4 /CMM (0.0-0.7); EOSINOPHILS % (AUTO) 4.3 % (0.0-6.0); HEMATOCRIT 33 % (39-51); HEMOGLOBIN 10.3 g/dL (13.5-17.5); LYMPHOCYTES # (AUTO) 1.4 /CMM (0.8-4.8); LYMPHOCYTES % (AUTO) 15.5 % (20.0-44.0); MEAN CORPUSCULAR HEMOGLOBIN 25 PG (26.0-33.0); MEAN CORPUSCULAR HGB CONC 32 g/dl (31.0-36.0); MEAN CORPUSCULAR VOLUME 79 fL (80-96); MONOCYTES # (AUTO) 0.3 /CMM (0.1-1.30); MONOCYTES % (AUTO) 3.1 % (2.0-12.0); NEUTROPHILS % (AUTO) 77.1 % (43.0-81.0); PLATELET COUNT (AUTO) 247 /CMM (150-450); WHITE BLOOD COUNT (AUTO) 9.1 K/uL (4.3-11.0)
[2016-11-27 07:23] LABS: CALCIUM, SERUM 8.5 mg/dL (8.5-10.1); PHOSPHORUS 3.1 mg/dL (2.5-4.9); POTASSIUM 3.9 mmol/L (3.5-5.1)
[2016-11-27 07:24] LABS: INR 2.43 (0.87-1.13); PROTHROMBIN TIME 26.5 SECS (9.5-12.7)
[2016-11-27 08:00] VITALS: BP 127/78
[2016-11-27 08:15] LABS: DIFF TOTAL % 100 %
[2016-11-27] MEDS: BLOOD SUGAR DIAGNOSTIC 1 EACH STRIP VI SCH ×3 (08:42→17:18)
[2016-11-27] MEDS: PANTOPRAZOLE 40 MG TABLET.DR PO SCH (08:44)
[2016-11-27] MEDS: FOLIC ACID 1 MG TABLET PO SCH (08:44)
[2016-11-27] MEDS: ASCORBIC ACID 500 MG TABLET PO SCH (08:44)
[2016-11-27] MEDS: FUROSEMIDE 40 MG TABLET PO SCH (08:45)
[2016-11-27] MEDS: THIAMINE HCL 100 MG TABLET PO SCH (08:45)
[2016-11-27] MEDS: MULTIVITAMINS,THERAPEUTIC 1 UDTAB TABLET PO SCH (08:45)
[2016-11-27] MEDS: QUETIAPINE FUMARATE 25 MG TABLET PO SCH ×2 (08:45→17:38)
[2016-11-27] MEDS: CARVEDILOL 6.25 MG TABLET PO SCH ×2 (08:46→17:38)
[2016-11-27] MEDS: DIVALPROEX SODIUM 500 MG TABLET.DR PO SCH (08:47)
[2016-11-27] MEDS: CLOTRIMAZOLE 1% 15 GM TUBE TP SCH ×2 (08:47→17:41)
[2016-11-27] MEDS: LORAZEPAM 0.5 MG TABLET PO PRN ×2 (08:48→17:38)
[2016-11-27] MEDS: INSULIN REGULAR, HUMAN 100 UNIT/ML 3 ML VIAL SQ PRN ×2 (12:54→18:37)
[2016-11-27] MEDS: HYDROCODONE/APAP 5/325MG 1 EACH TABLET PO PRN (13:08)
[2016-11-27 16:00] VITALS: BP 131/91
[2016-11-27 17:38] VITALS: BP 131/91
[2016-11-27] MEDS: WARFARIN SODIUM 1 MG TABLET PO SCH (17:38)
== END 2016-11-27 19:26 | DRG 885 ==
LOC: GPS 20:25
PROVIDERS: ADMIT Psychiatry & Neurology Psychosomatic Medicine; ATTEND Internal Medicine
DX: F25.0 Schizoaffective disorder, bipolar type (principal); F01.50 Vascular dementia, unspecified severity, without behavioral disturbance, psychotic disturbance, mood disturbance, and anxiety; G93.40 Encephalopathy, unspecified; M62.82 Rhabdomyolysis; E87.0 Hyperosmolality and hypernatremia; F19.90 Other psychoactive substance use, unspecified, uncomplicated; G89.29 Other chronic pain; D50.9 Iron deficiency anemia, unspecified; I48.91 Unspecified atrial fibrillation; Z79.01 Long term (current) use of anticoagulants; I10 Essential (primary) hypertension; E78.5 Hyperlipidemia, unspecified; E11.649 Type 2 diabetes mellitus with hypoglycemia without coma; F29 Unspecified psychosis not due to a substance or known physiological condition; Z86.73 Personal history of transient ischemic attack (TIA), and cerebral infarction without residual deficits; I50.9 Heart failure, unspecified; I25.10 Atherosclerotic heart disease of native coronary artery without angina pectoris; K21.9 Gastro-esophageal reflux disease without esophagitis; F41.9 Anxiety disorder, unspecified; F32.9 Major depressive disorder, single episode, unspecified; Z95.1 Presence of aortocoronary bypass graft; Z95.2 Presence of prosthetic heart valve; I05.0 Rheumatic mitral stenosis; T50.2X5A Adverse effect of carbonic-anhydrase inhibitors, benzothiadiazides and other diuretics, initial encounter; E83.42 Hypomagnesemia; Z87.440 Personal history of urinary (tract) infections
CPT/HCPCS: 36415; 70450-TC; 71010-TC; 80048-TC; 80061-TC; 82565-TC; 82962-TC; 83735-TC; 84100-TC; 85025-TC; 85610-TC; 87081-TC; 87086-TC; 97001-TC; A6402; J1650; J1815; Q0163

== ENCOUNTER 2018-05-08 14:37 | Inpatient (IN) | payer MEDICARE, OTHER ==
[~2018-05-08] VITALS: Ht 172.7 cm; Wt 89.4 kg
[~2018-05-08 14:37] MED LIST changes: -AZTR1FRO IV; -CLON0.5T PO; -CLON1TAB PO; -DEXT1CAP3 PO; -DEXT38GE12 PO; -GLUCOSE GEL 40% PO; -LACT10SO7 PO; +MAGN400O21 PO; -MAGN400O4 PO; -QUET50TA PO; -[UNRECOGNIZED DRUG - CODE] IV
--- NOTE | 2018-05-08 14:50 | NUR ---
[id number] FROM [employer]: LOW O2 SAT, ALOC, TACHYCARDIA. RESP IS SLIGHTLY LABORED. SKIN IS WARM AND DRY. PLACED ON THE MONITOR. DR SULTANA AT FOR EVAL.
[2018-05-08] MEDS ORDERED: DILTIAZEM HCL 25 MG IV ONE (15:05)
[2018-05-08 15:19] LABS: ABG BASE EXCESS -5.3 mmol/L; ABG OXYGEN SATURATION 89.6 % (92.0-98.5); ABG PCO2 31.8 mmHg (35.0-45.0); ABG PH 7.384 (7.350-7.450); ABG PO2 65.7 mmHg (75.0-100.0); AaDO2 96.4 mmHg; MetHb 0.4 % (0.0-1.5); O2Hb 88.3 % (94.0-97.0); SITE, ABG Right Radial; VENT MODE, BG nasal cannula
[2018-05-08] MEDS ORDERED: DILTIAZEM HCL 50 MG IV IV ONE (15:30)
[2018-05-08] MEDS ORDERED: ARGI1POW13 PO (15:36)
[2018-05-08] MEDS ORDERED: HYDR-3976 PO ×2 (15:36)
[2018-05-08] MEDS ORDERED: PANT20TA2 PO (15:36)
[2018-05-08] MEDS ORDERED: FURO40TA5 PO (15:36)
[2018-05-08] MEDS ORDERED: QUET25TA PO ×2 (15:36)
[2018-05-08] MEDS ORDERED: MULT-447 PO (15:36)
[2018-05-08 15:39] LABS: SERUM AMMONIA 40 umol/L (11-32)
[2018-05-08 15:46] LABS: BASOPHILS # (AUTO) 0.1 /CMM (0.0-0.2); BASOPHILS % (AUTO) 0.6 % (0.0-2.0); LYMPHOCYTES # (AUTO) 0.8 /CMM (0.8-4.8); MONOCYTES # (AUTO) 1.1 /CMM (0.1-1.30); NEUTROPHILS # (AUTO) 13.4 /CMM (1.8-8.9)
[2018-05-08] MEDS ORDERED: LIDOCAINE 2% JEL UROJET 10 ML MM ONE ×2 (15:47→16:00)
[2018-05-08 15:48] LABS: HEMATOCRIT 47 % (39-51); MEAN CORPUSCULAR HEMOGLOBIN 29 PG (26.0-33.0); MEAN CORPUSCULAR HGB CONC 32 g/dl (31.0-36.0); MEAN CORPUSCULAR VOLUME 91 fL (80-96); PLATELET COUNT (AUTO) 200 /CMM (150-450); RDW COEFFICIENT OF VARIATION 18.5 (11.5-15.0); WHITE BLOOD COUNT (AUTO) 15.3 K/uL (4.3-11.0)
[2018-05-08 15:49] LABS: EOSINOPHILS % (AUTO) 0.1 % (0.0-6.0); LYMPHOCYTES % (AUTO) 5.2 % (20.0-44.0); MONOCYTES % (AUTO) 7.3 % (2.0-12.0); NEUTROPHILS % (AUTO) 86.8 % (43.0-81.0)
[2018-05-08 15:57] LABS: ACETAMINOPHEN 4 ug/ml (10-30); ALANINE AMINOTRANSFERASE 286 U/L (12-78); ALBUMIN 2.9 g/dL (3.4-5.0); ALCOHOL, BLOOD < 3 mg/dL (0-0); ALKALINE PHOSPHATASE 80 U/L (46-116); ASPARTATE AMINOTRANSFERASE 320 U/L (15-37); BILIRUBIN,DIRECT 0.4 mg/dL (0.0-0.2); CALCIUM, SERUM 8.7 mg/dL (8.5-10.1); CARBON DIOXIDE 21 mmol/L (21-32); CHLORIDE 114 mmol/L (98-107); CREATININE 2.5 mg/dL (0.6-1.3); GLUCOSE 150 mg/dL (74-106); POTASSIUM 4.8 mmol/L (3.5-5.1); SODIUM SERUM 150 mmol/L (136-145); TOTAL PROTEIN, SERUM 6.3 g/dL (6.4-8.2)
[2018-05-08] MEDS ORDERED: IPRATROPIUM NEB FS 0.5 MG/2.5 ML AMPUL.NEB NEB ONE (16:00)
[2018-05-08] MEDS ORDERED: ALBUTEROL FS 2.5 MG/3 ML VIAL.NEB NEB ONE (16:00)
[2018-05-08 16:03] LABS: SALICYLATE 1.7 mg/dL (2.8-20.0); UREA NITROGEN, BLOOD 99 mg/dL (7-18)
[2018-05-08 16:07] LABS: APPEARANCE,URINE Clear (CLEAR); BILIRUBIN,URINE Negative (NEGATIVE); BLOOD, URINE Trace-intact Ery/uL (NEGATIVE); COLOR,URINE Yellow (YELLOW); KETONES,URINE Trace (NEGATIVE); LEUKOCYTE ESTERASE ,URINE Negative (NEGATIVE); NITRITE, URINE Negative (NEGATIVE); PROTEIN,URINE Trace mg/dl (NEGATIVE); UGLUCOSE Negative (NEGATIVE)
[2018-05-08 16:07] LABS: TROPONIN I 0.648 ng/mL (0.00-0.056)
[2018-05-08] MEDS ORDERED: IPRATROPIUM NEB FS 0.5 MG/2.5 ML AMPUL.NEB ONE (16:08)
[2018-05-08] MEDS ORDERED: ALBUTEROL FS 2.5 MG/3 ML VIAL.NEB ONE (16:08)
--- NOTE | 2018-05-08 16:09 | NUR ---
BED 115-1
[2018-05-08 16:16] LABS: INR 5.14 (0.85-1.15)
[2018-05-08 16:19] LABS: BACTERIA,URINE None seen /HPF (None Seen); SQUAMOUS EPITHELIAL CELL,UR Few /HPF (None Seen); URINE AMORPHOUS URATE Few /HPF (None Seen); WBC,URINE 0-2 /HPF (0-3)
[2018-05-08] MEDS ORDERED: IV NS 0.9% 1,000 ML BAG IV ONE ×2 (16:30→20:00)
--- NOTE | 2018-05-08 16:45 | NUR ---
REPORT GIVEN TO YANNICK KAUR FOR NGOZI NITESH 115-2
[2018-05-08 16:55] LABS: THYROID STIMULATING HORMONE 2.902 uIU/mL (0.358-3.74)
--- NOTE | 2018-05-08 17:30 | NUR ---
RN NOTE RECEIVED REPORT FROM [facility] ER. RECEIVED PATIENT 67 YEAR OLD MALE BBRA LOW O2 SAT AND TACHYCARDIA. PATIENT ALERT AND ORIENTED X1, MUMBLE WORDS. BREATHING EVEN AND LABORED ON CONTINUOUS O2 2L VIA N/C. ON PROCUREMENT CONSULTANT OF UNCONTROLLED A-FIB. PATIENT IS COOPERATIVE AND COLLECTIVE. RIGHT WRIST IV SITE INTACT AND PATENT. ALL SAFETY MEASURES DONE. BED LOCKED AND LOW POSITION. PLACED CALL LIGHT WITHIN REACH. WILL CONTINUE TO MONITOR CLOSELY
--- NOTE | 2018-05-08 17:31 | NUR ---
RN NOTE WOUND PICTURES TAKEN AND DOCUMENTED IN CHART
[2018-05-08] MEDS ORDERED: IV NS 0.9% 1,000 ML IV PRN (17:32)
[2018-05-08] MEDS ORDERED: MAGNESIUM HYDROXIDE 30 ML UDC PO PRN (18:00)
[2018-05-08] MEDS ORDERED: DEXTROSE 50%-WATER 50 ML DISP.SYRIN IV PRN (18:00)
[2018-05-08] MEDS ORDERED: MAG HYDROX/AL HYDROX/SIMETH 30 ML UDC PO PRN (18:00)
[2018-05-08] MEDS ORDERED: ALBUTEROL FS 2.5 MG/3 ML VIAL.NEB NEB PRN (18:00)
[2018-05-08] MEDS ORDERED: ONDANSETRON HCL/PF 4 MG/2 ML VIAL IVP PRN (18:00)
[2018-05-08] MEDS ORDERED: PIPERACILLIN /TAZOBACTAM 4.5 G in IV D5W 50 ML IV SCH (18:00)
[2018-05-08] MEDS ORDERED: ACETAMINOPHEN 325 MG TABLET PO PRN (18:00)
[2018-05-08] MEDS ORDERED: Z GUARD REMEDY 2 OZ OINT TP PRN (18:00)
[2018-05-08] MEDS ORDERED: ZOLPIDEM TARTRATE 5 MG TABLET PO PRN (18:00)
[2018-05-08] MEDS ORDERED: VANCOMYCIN 1 GM in IV D5W 250 ML IV SCH (18:00)
[2018-05-08 18:27] VITALS: BP 101/62
[2018-05-08] MEDS: IV D5W 100 ML IV SCH ×2 (19:00→21:17)
--- NOTE | 2018-05-08 19:10 | NUR ---
RN NOTE LABORATORY CALLED RELAYED LACTIC ACID LEVEL OF 3.6. RELAYED MESSAGE TO DR YUSUF, AWAITING FOR FURTHER ORDERS.
[2018-05-08 19:38] LABS: BILIRUBIN,DIRECT 0.5 mg/dL (0.0-0.2); BILIRUBIN,TOTAL 1.1 mg/dL (0.2-1.0); TOTAL PROTEIN, SERUM 6.3 g/dL (6.4-8.2)
[2018-05-08 19:46] LABS: THYROID STIMULATING HORMONE 1.603 uIU/mL (0.358-3.74)
[2018-05-08 20:00] VITALS: BP 103/80
[2018-05-08] MEDS: IPRATROPIUM NEB FS 0.5 MG/2.5 ML AMPUL.NEB NEB SCH ×2 (20:08→23:56)
[2018-05-08] MEDS: METOPROLOL TARTRATE INJ 5 MG/5 ML AMPUL IVP PRN (20:52)
[2018-05-08] MEDS: BLOOD SUGAR DIAGNOSTIC 1 EACH STRIP IN SCH (20:56)
[2018-05-08] MEDS: INSULIN REGULAR, HUMAN 100 UNIT/ML 3 ML VIAL SQ PRN (20:57)
[2018-05-08] MEDS: HYDROCODONE/APAP 5/325MG 1 EACH TABLET PO SCH (21:00)
[2018-05-08] MEDS ORDERED: PHYTONADIONE INJ 1 MG in IV D5W 50 ML IV ONE (21:00)
[2018-05-08] MEDS: CARVEDILOL 6.25 MG TABLET PO SCH (21:00)
[2018-05-08] MEDS ORDERED: IV D5W 100 ML IV PRN (21:30)
[2018-05-08] MEDS: DIVALPROEX SODIUM 500 MG TABLET.DR PO SCH (21:36)
[2018-05-08] MEDS: QUETIAPINE FUMARATE 25 MG TABLET PO SCH (21:36)
[2018-05-08] MEDS: SIMVASTATIN 10 MG TABLET PO SCH (21:36)
[2018-05-08] MEDS: MEROPENEM 500 MG in IV NS 0.9% 50 ML IV SCH (22:04)
[2018-05-08] MEDS: LINEZOLID RTU BAG 600 MG in PREMIX 1 EA IV SCH (22:58)
[2018-05-08 23:14] LABS: CALCIUM, SERUM 8.3 mg/dL (8.5-10.1); CREATININE 2.2 mg/dL (0.6-1.3); POTASSIUM 4.4 mmol/L (3.5-5.1)
[2018-05-08 23:17] LABS: TROPONIN I 0.618 ng/mL (0.00-0.056)
--- NOTE | 2018-05-08 23:19 | NUR ---
RN NOTES RECEIVED CALL FROM LAB REGARDING CRITICAL LAB RESULTS. TROP 0.618 AND LACTIC ACID 3.0. LAB RESULTS ARE TRENDING DOWN. WILL CONTINUE TO MONITOR PATIENT
[2018-05-09] VITALS (7 sets, daily range): BP systolic 90–119; BP diastolic 55–91
[2018-05-09] MEDS: INSULIN REGULAR, HUMAN 100 UNIT/ML 3 ML VIAL SQ PRN ×3 (01:06→12:29)
[2018-05-09] MEDS: BLOOD SUGAR DIAGNOSTIC 1 EACH STRIP IN SCH ×6 (01:06→21:17)
[2018-05-09] MEDS: IPRATROPIUM NEB FS 0.5 MG/2.5 ML AMPUL.NEB NEB SCH ×6 (02:48→23:55)
[2018-05-09 04:31] LABS: INR 2.8 (0.87-1.13)
[2018-05-09 04:33] LABS: BASOPHILS # (AUTO) 0.1 /CMM (0.0-0.2); BASOPHILS % (AUTO) 0.8 % (0.0-2.0); EOSINOPHILS % (AUTO) 0.1 % (0.0-6.0); HEMATOCRIT 43 % (39-51); HEMOGLOBIN 14.4 g/dL (13.5-17.5); LYMPHOCYTES # (AUTO) 0.9 /CMM (0.8-4.8); LYMPHOCYTES % (AUTO) 7.3 % (20.0-44.0); MEAN CORPUSCULAR HEMOGLOBIN 30 PG (26.0-33.0); MEAN CORPUSCULAR HGB CONC 33 g/dl (31.0-36.0); MEAN CORPUSCULAR VOLUME 92 fL (80-96); MONOCYTES # (AUTO) 0.8 /CMM (0.1-1.30); MONOCYTES % (AUTO) 6.4 % (2.0-12.0); NEUTROPHILS # (AUTO) 10.5 /CMM (1.8-8.9); NEUTROPHILS % (AUTO) 85.4 % (43.0-81.0); PLATELET COUNT (AUTO) 167 /CMM (150-450); RDW COEFFICIENT OF VARIATION 17.9 (11.5-15.0); RED BLOOD CELL COUNT(AUTO) 4.73 MIL/uL (4.5-6.0); WHITE BLOOD COUNT (AUTO) 12.3 K/uL (4.3-11.0)
[2018-05-09 04:35] LABS: CALCIUM, SERUM 8.5 mg/dL (8.5-10.1); CREATININE 2.1 mg/dL (0.6-1.3); MAGNESIUM 2.5 mg/dL (1.8-2.4); PHOSPHORUS 5.7 mg/dL (2.5-4.9); POTASSIUM 4.1 mmol/L (3.5-5.1)
--- NOTE | 2018-05-09 07:20 | NUR ---
NITESH RN NOTE Patient received from previous shift, awake, alert to name. Follows very simple commands at times. Mumbles words at times. Able to understand sometimes. With c/o generalized pain especially when repositioned. Noted screaming when repositioned. PIV intact. Afib 125, will administer Metoprolol as ordered.
[2018-05-09] MEDS: METOPROLOL TARTRATE INJ 5 MG/5 ML AMPUL IVP PRN (07:57)
[2018-05-09] MEDS ORDERED: IV D5W 1,000 ML IV PRN (08:00)
--- NOTE | 2018-05-09 08:00 | NUR ---
WOUND CARE CONSULT: PT PRESENTS WITH LEFT ANKLE WOUND AND RT ANTERIOR LOWER LEG DRY SCAB, PRESENT ON ADMISSION. PT NOTED TO HAVE RT ANKLE AND SACRAL SCARRING. ALL WOUND CARE AND SKIN PROTECTION RECOMMENDATIONS DISCUSSED WITH NURSING STAFF. PT ON DIRK ISOFLEX LOW AIRLOSS BED. WILL SEE PRN. PODIATRY CONSULT RECOMMENDED. MD IN AGREEMENT WITH PLAN OF CARE. CURRENT ISA SCORE IS 12. Addendum: 05/09/18 at 0803 by RENALDO GRACIA WNDNU Amended: Links added.
[2018-05-09] MEDS: HYDROCODONE/APAP 5/325MG 1 EACH TABLET PO SCH ×2 (08:19→21:12)
[2018-05-09] MEDS: DIVALPROEX SODIUM 500 MG TABLET.DR PO SCH ×2 (08:19→21:13)
[2018-05-09] MEDS: FOLIC ACID 1 MG TABLET PO SCH (08:20)
[2018-05-09] MEDS: QUETIAPINE FUMARATE 25 MG TABLET PO SCH ×3 (08:20→21:11)
[2018-05-09] MEDS: CARVEDILOL 6.25 MG TABLET PO SCH ×2 (08:20→21:00)
[2018-05-09] MEDS: MEROPENEM 500 MG in IV NS 0.9% 50 ML IV SCH ×2 (08:26→21:15)
[2018-05-09] MEDS ORDERED: ASPIRIN 81 MG TAB.CHEW PO SCH (09:00)
[2018-05-09] MEDS: LINEZOLID RTU BAG 600 MG in PREMIX 1 EA IV SCH ×2 (10:08→22:15)
[2018-05-09] MEDS ORDERED: Potassium Chloride 10 MEQ in IV D5/0.45 NACL 1,000 ML IV PRN (10:30)
--- NOTE | 2018-05-09 11:24 | NUR ---
NITESH RN NOTE Spoke with Donna via phone and given consent for left ankle wound debridement, made Podia aware, given supplies.
--- NOTE | 2018-05-09 11:50 | NUR ---
NITESH RN NOTE Done with left ankle wound debridement, patient tolerated well. Will continue to monitor.
--- NOTE | 2018-05-09 16:14 | NUR ---
NITESH RN NOTE Tried to apply DVT pump but patient screaming for pain when BLE is moved.
--- NOTE | 2018-05-09 17:40 | NUR ---
1658 Daughter Deja at bedside, informed patient's left pupil is wider than right and it wasn't like that before, rendered 1530 assessment, patient still PERRLA. Daughter verbalized patient is weaker than normal. Patient is been weak since admission and since I received in the morning. He is usally weaker on the left side. Patient still able to verbal understandable words. Called SCHOOL OPERATIONS MANAGER, Thalia RN from ICU responded and called Code Stroke. Tamica ATTENDANCE OFFICER came with order for stat CT wo. 1700, patient to CT. 1719, Telestroke called [phone]. 1720, back to room,EKG shows Afirb 90's. NIHSS score 4. Noted with coughing when swallowing like when helped on feeding lunch. Seen as well by ST before lunch. 1730: Spoke with 1733, Dr. Mares called back and given Telestroke number and transferred her call to Radiology. Awaiting for MDs call back. No significant changes at this time. Awaiting CT result.
[2018-05-09 18:22] LABS: BASOPHILS % (AUTO) 0.2 % (0.0-2.0); EOSINOPHILS % (AUTO) 0.6 % (0.0-6.0); HEMATOCRIT 45 % (39-51); HEMOGLOBIN 14.8 g/dL (13.5-17.5); LYMPHOCYTES # (AUTO) 0.6 /CMM (0.8-4.8); LYMPHOCYTES % (AUTO) 5.3 % (20.0-44.0); MEAN CORPUSCULAR HEMOGLOBIN 30 PG (26.0-33.0); MEAN CORPUSCULAR HGB CONC 33 g/dl (31.0-36.0); MEAN CORPUSCULAR VOLUME 92 fL (80-96); MONOCYTES # (AUTO) 0.9 /CMM (0.1-1.30); MONOCYTES % (AUTO) 7.8 % (2.0-12.0); NEUTROPHILS # (AUTO) 9.6 /CMM (1.8-8.9); NEUTROPHILS % (AUTO) 86.1 % (43.0-81.0); PLATELET COUNT (AUTO) 171 /CMM (150-450); RDW COEFFICIENT OF VARIATION 17.6 (11.5-15.0); RED BLOOD CELL COUNT(AUTO) 4.92 MIL/uL (4.5-6.0); WHITE BLOOD COUNT (AUTO) 11.2 K/uL (4.3-11.0)
--- NOTE | 2018-05-09 18:25 | NUR ---
MOTOR RACER NOTE Held insulin for BS 145, for not to causer hypoglycemia, SP code stroke. And held dinner for still noted with coughing when trying to swallow, will F/U with ST in am.
[2018-05-09 18:35] LABS: INR 1.77 (0.87-1.13)
[2018-05-09 18:39] LABS: CALCIUM, SERUM 8.9 mg/dL (8.5-10.1); CREATININE 1.9 mg/dL (0.6-1.3); POTASSIUM 3.8 mmol/L (3.5-5.1)
[2018-05-09 18:48] LABS: TROPONIN I 0.341 ng/mL (0.00-0.056)
--- NOTE | 2018-05-09 20:31 | NUR ---
Rn verónica initial note Patient received from previous shift, awake, alert to name. lethargic, Mumbles words at times. Able to understand sometimes. With no facial grimancing noted. eval for stroke done ct head (-), code status changed to dnr/dni, PIV intact. Afib 107 some times w/pvc, will cont to monitor pt for any s/sx of stroke.
[2018-05-09] MEDS: SIMVASTATIN 10 MG TABLET PO SCH (21:11)
--- NOTE | 2018-05-09 21:48 | NUR ---
COREG 6.25 MG HOLD BP 93/79
[2018-05-10] VITALS (8 sets, daily range): BP systolic 91–107; BP diastolic 53–79
[2018-05-10] MEDS: BLOOD SUGAR DIAGNOSTIC 1 EACH STRIP IN SCH ×4 (01:21→13:21)
--- NOTE | 2018-05-10 01:23 | NUR ---
BS 163 NOT COVERED PER GLUER PT TRENDING LOW, WEAK WILL CONT TO MONITOR.
[2018-05-10] MEDS: IPRATROPIUM NEB FS 0.5 MG/2.5 ML AMPUL.NEB NEB SCH ×6 (03:18→23:15)
[2018-05-10] MEDS: INSULIN REGULAR, HUMAN 100 UNIT/ML 3 ML VIAL SQ PRN (05:18)
[2018-05-10 06:50] LABS: BASOPHILS % (AUTO) 0.1 % (0.0-2.0); EOSINOPHILS % (AUTO) 0.9 % (0.0-6.0); HEMATOCRIT 43 % (39-51); HEMOGLOBIN 14.1 g/dL (13.5-17.5); LYMPHOCYTES # (AUTO) 0.7 /CMM (0.8-4.8); MEAN CORPUSCULAR HEMOGLOBIN 31 PG (26.0-33.0); MEAN CORPUSCULAR HGB CONC 33 g/dl (31.0-36.0); MEAN CORPUSCULAR VOLUME 92 fL (80-96); MONOCYTES # (AUTO) 0.7 /CMM (0.1-1.30); MONOCYTES % (AUTO) 8.4 % (2.0-12.0); NEUTROPHILS # (AUTO) 6.5 /CMM (1.8-8.9); NEUTROPHILS % (AUTO) 81.6 % (43.0-81.0); PLATELET COUNT (AUTO) 132 /CMM (150-450); RDW COEFFICIENT OF VARIATION 18.5 (11.5-15.0); RED BLOOD CELL COUNT(AUTO) 4.63 MIL/uL (4.5-6.0)
[2018-05-10 07:26] LABS: ALBUMIN 2.5 g/dL (3.4-5.0); BILIRUBIN,TOTAL 1.1 mg/dL (0.2-1.0); CREATININE 1.4 mg/dL (0.6-1.3); MAGNESIUM 2.3 mg/dL (1.8-2.4); PHOSPHORUS 3.8 mg/dL (2.5-4.9); POTASSIUM 4.2 mmol/L (3.5-5.1); TOTAL PROTEIN, SERUM 5.6 g/dL (6.4-8.2)
--- NOTE | 2018-05-10 08:00 | NUR ---
RN NITESH: pt.is very sleepy, reactive by touch, grimacing occas. 7-8/10, unclear slow speech, confirmed general pain with reposition (no local), Pupils: L.4mm, R.2mm, weak symmetric extremities activity, can follow simple commands, but only for seconds tracking reaction, no headache, unable to swallow hole food well by report, Afib with PVCs by report, HR 56-82 over night by recording, around 90 on monitor, getting D51/2NS with 10Kcl IVF, BS q4h, was encouraged be awake, oriented for POC
[2018-05-10] MEDS: MEROPENEM 500 MG in IV NS 0.9% 50 ML IV SCH ×2 (08:16→21:22)
[2018-05-10] MEDS: LINEZOLID RTU BAG 600 MG in PREMIX 1 EA IV SCH ×2 (08:16→22:14)
[2018-05-10] MEDS: HYDROGEL DRESSING 90 GM TUBE TP SCH (08:30)
--- NOTE | 2018-05-10 08:40 | NUR ---
BALANCE BRIDGE INSPECTOR: HR was 56-84 over night by MEDIA ANALYST/nurse record data, on monitor HR is around 100, afib, is aware
--- NOTE | 2018-05-10 08:45 | NUR ---
COMMUNITY HEALTH COUNSELOR: no f/c, notify AVIONICS TECHNICIAN to record urine output and notify, spoke with charge nurse re: HR/VS record data by AVIONICS TECHNICIAN/nurse over night and different HR on monitor d/t unable to use VS machine correct to recognize afib/HR or request AVIONICS TECHNICIAN needed to see VS on monitor too? Pt.is more awake, able to clear answer y/n, better eyes contact, able to swallow couple water spoons with thickener, BP 91/64, hold coreg, HR 102 on monitor, ordered Digoxin, Coumadin, d/lissette IVF. Pt.doesn't need sitter by night nurse report.
[2018-05-10] MEDS: CARVEDILOL 6.25 MG TABLET PO SCH ×2 (09:00→21:22)
--- NOTE | 2018-05-10 09:30 | NUR ---
ADAPTED PHYSICAL EDUCATION SPECIALIST: pt.is still weak, sleepy, but little more awake, reactive by name well, no c/o now, more strong eyes contact, slow simple speech, able to swallow crashed meds with thickener water, pupils: R.2mm, L.3mm, no any new motion deficit
[2018-05-10] MEDS: QUETIAPINE FUMARATE 25 MG TABLET PO SCH ×3 (09:40→21:23)
[2018-05-10] MEDS: DIVALPROEX SODIUM 500 MG TABLET.DR PO SCH ×2 (09:41→21:23)
[2018-05-10] MEDS: FOLIC ACID 1 MG TABLET PO SCH (09:41)
[2018-05-10] MEDS: HYDROCODONE/APAP 5/325MG 1 EACH TABLET PO SCH ×2 (09:41→21:23)
[2018-05-10 10:27] LABS: INR 1.55 (0.87-1.13)
--- NOTE | 2018-05-10 12:18 | NUR ---
RN NITESH: HR 80-85 afib on monitor, same neuro status
[2018-05-10] MEDS: DIGOXIN INJ 0.5 MG/2 ML AMPUL IV SCH ×2 (12:36→17:34)
--- NOTE | 2018-05-10 14:13 | NUR ---
ROENTGENOLOGIST: HR 90-92 afib on monitor now, is in room, updated with pt.current neuro status, little activity level progress, no c/o now, still different pupils sizes, VS, I/O, aspiration precaution/pt.is able to swallow couple spoons of water/meds/thickener, IVF off, orders (coumadin, digoxin), labs, meds, BGL-said ok to continue AccuV q6h
[2018-05-10] MEDS ORDERED: DEXTROSE 50%-WATER 50 ML DISP.SYRIN IV PRN (16:30)
[2018-05-10] MEDS: WARFARIN SODIUM 1 MG TABLET PO SCH (17:24)
[2018-05-10] MEDS: BLOOD SUGAR DIAGNOSTIC 1 EACH STRIP VI SCH ×2 (17:45→21:39)
--- NOTE | 2018-05-10 17:45 | NUR ---
TOWEL SORTER: HR 90-92 afib on monitor now, pt.is more awake, can follow commands, swallow well slowly with puree thick diet
--- NOTE | 2018-05-10 19:30 | NUR ---
TELE/RN NOTES: RECEIVED PT. IN BED W/ HOB ELEVATED. ALERT TO SELF ONLY W/ DELAYED SPEECH. ON TELE MONITOR W/ AFIB 72. W/ O2 @ 2LPM VIA N/C SAT. 96%. INCONTINENT OF B/B. W/ RIGHT WRIST G 20 PATENT AND INTACT W/ NO S/S OF INFECTION/INFILTRATION NOTED. MEDS CRUSED W/ APPLE SAUCE GIVEN. BEDS LOCKED AND IN LOW POSITION. WILL CONTINUE TO MONITOR.
[2018-05-11] VITALS: BP 109/64
[2018-05-11] MEDS: DIGOXIN INJ 0.5 MG/2 ML AMPUL IV SCH (00:03)
[2018-05-11] MEDS: IPRATROPIUM NEB FS 0.5 MG/2.5 ML AMPUL.NEB NEB SCH ×5 (03:32→20:18)
[2018-05-11 04:00] VITALS: BP 90/59
[2018-05-11 06:04] VITALS: BP 90/59
--- NOTE | 2018-05-11 07:23 | NUR ---
TELE/RN NOTES: NO ACUTE CHANGES NOTED DURING THIS SHIFT. REPORT GIVEN TO NEXT SHIFT NURSE FOR NGOZI.
[2018-05-11] MEDS: BLOOD SUGAR DIAGNOSTIC 1 EACH STRIP VI SCH ×4 (07:49→21:40)
[2018-05-11 08:00] VITALS: BP 103/72
--- NOTE | 2018-05-11 08:00 | NUR ---
TELE1/RN AM SHIFT INITIAL NOTES RECEIVED PT AWAKE IN BED, NO ACUTE CHANGE OF CONDITION NOTED, PT A/O X 1, FOLLOWS COMMEND, NOTED WITH EPISODES OF CONFUSION. ON 2L O2 VIA N/C SATURATING @ 99%, LUNG SOUNDS RHONCHI, RESPIRATIONS EVEN & UNLABORED. ON TELE WITH CONTROLLED A-FIB, HR 72. IV SITES FLUSHED, PATENT ON TKO, NO S/S OF INFECTION. PT IS COMFORTABLE, SCHEDULED AM MEDS TO BE GIVEN. CL WITHIN REACHED AND SAFETY MAINTAINED. ON GOING MONITORING.
[2018-05-11] MEDS: MEROPENEM 500 MG in IV NS 0.9% 50 ML IV SCH ×2 (08:35→20:22)
[2018-05-11] MEDS: FOLIC ACID 1 MG TABLET PO SCH (08:36)
[2018-05-11] MEDS: QUETIAPINE FUMARATE 25 MG TABLET PO SCH ×3 (08:36→21:39)
[2018-05-11] MEDS: HYDROCODONE/APAP 5/325MG 1 EACH TABLET PO SCH ×2 (08:37→21:39)
[2018-05-11] MEDS: DIVALPROEX SODIUM 500 MG TABLET.DR PO SCH ×2 (08:37→21:38)
[2018-05-11] MEDS: CARVEDILOL 6.25 MG TABLET PO SCH ×2 (08:37→21:39)
[2018-05-11] MEDS: HYDROGEL DRESSING 90 GM TUBE TP SCH (08:37)
[2018-05-11 10:11] LABS: INR 1.36 (0.87-1.13)
[2018-05-11 10:14] LABS: CALCIUM, SERUM 8.4 mg/dL (8.5-10.1); CREATININE 1.3 mg/dL (0.6-1.3); POTASSIUM 4.1 mmol/L (3.5-5.1)
[2018-05-11 10:24] LABS: HEMATOCRIT 43 % (39-51); HEMOGLOBIN 13.9 g/dL (13.5-17.5); LYMPHOCYTES % (AUTO) 4.4 % (20.0-44.0); MEAN CORPUSCULAR HEMOGLOBIN 30 PG (26.0-33.0); MEAN CORPUSCULAR HGB CONC 32 g/dl (31.0-36.0); MEAN CORPUSCULAR VOLUME 94 fL (80-96); NEUTROPHILS % (AUTO) 83.9 % (43.0-81.0); PLATELET COUNT (AUTO) 140 /CMM (150-450); RDW COEFFICIENT OF VARIATION 18.3 (11.5-15.0); RED BLOOD CELL COUNT(AUTO) 4.61 MIL/uL (4.5-6.0); WHITE BLOOD COUNT (AUTO) 11.3 K/uL (4.3-11.0)
[2018-05-11 10:25] LABS: BASOPHILS % (AUTO) 0.3 % (0.0-2.0); EOSINOPHILS % (AUTO) 2.9 % (0.0-6.0); MONOCYTES % (AUTO) 8.5 % (2.0-12.0)
[2018-05-11] MEDS: LINEZOLID RTU BAG 600 MG in PREMIX 1 EA IV SCH ×2 (10:55→21:38)
[2018-05-11] MEDS: *INSULIN REGULAR(HUMULIN R)HUM 100 UNIT/ML VIAL SQ PRN (14:54)
[2018-05-11 16:00] VITALS: BP 105/73
[2018-05-11] MEDS: WARFARIN SODIUM 1 MG TABLET PO SCH (17:00)
--- NOTE | 2018-05-11 19:20 | NUR ---
RN M/S NOTE PATIENT IS AOX1, MUMBLED SPEECH, ANSWERING APPROPRIATELY WHEN ASKED ON WELL BEING, DENIES ANY PAIN CURRENTLY, RESTING COMFORTABLY IN BED, ON 2L O2 VIA NC, NO CARDIAC OR RESPIRATORY DISTRESS, L WRIST #20G AND R WRIST #20G PATENT FLUSHING WELL, SITE CDI, INCONTINENT SKIN KEPT CLEAN AND DRY. SAFETY MAINTAINED AT ALL TIMES, BED IN LOW LOCKED POSITION, CALL LIGHT WITHIN REACH, WILL CONTINUE TO MONITOR FOR ANY CHANGES IN CONDITION.
[2018-05-11 20:00] VITALS: BP 111/70
--- NOTE | 2018-05-11 20:00 | NUR ---
MS1/RN AM SHIFT END NOTES ALL NEEDS MET. NO ACUTE CHANGE OF CONDITION NOTED DURING THE SHIFT. PT ENDORSED TO PM NURSE TO CONTINUE CARE. IV SITE INTACT AND PATENT, NO S/S OF INFECTION. CL WITHIN REACHED AND SAFETY MAINTAINED.
[2018-05-12] VITALS: BP 94/68
[2018-05-12] MEDS: IPRATROPIUM NEB FS 0.5 MG/2.5 ML AMPUL.NEB NEB SCH ×7 (00:22→23:06)
[2018-05-12 04:00] VITALS: BP 96/77
--- NOTE | 2018-05-12 06:33 | NUR ---
VEGETABLE PREPARER NOTE PATIENT RESTING COMFORTABLY IN BED, AOX3, SPEECH CLEAR, ABLE TO MAKE NEEDS KNOWN, TOLERATING BIPAP WELL DURING NIGHT, NO ACUTE CHANGES IN LOC, CONTINUES TO REPORT R EYE PAIN GIVEN PRN MORPHINE. DENIES ANY OTHER PAIN. NS AT 75 ML/HR IN R HAND, PATENT FLUSHING WELL. NO VOICED CONCERNS FROM PT AT THIS TIME, SAFETY MAINTAINED, FALL PRECAUTIONS OBSERVED, WILL ENDORSE TO AM RN. Addendum: 05/12/18 at 1958 by SANJAY HE RN DISREGARD NOTE, DOCUMENTED IN WRONG CHART.
[2018-05-12] MEDS: BLOOD SUGAR DIAGNOSTIC 1 EACH STRIP VI SCH ×4 (07:30→21:29)
--- NOTE | 2018-05-12 07:30 | NUR ---
MS RN OPENING NOTE PATIENT IS AOX1, MUMBLED SPEECH, ANSWERING APPROPRIATELY WHEN ASKED ON WELL BEING, DENIES ANY PAIN CURRENTLY, RESTING COMFORTABLY IN BED, ON 2L O2 VIA NC, NO CARDIAC OR RESPIRATORY DISTRESS, L WRIST #20G AND R WRIST #20G PATENT FLUSHING WELL, SITE CDI, SAFETY MAINTAINED , BED IN LOW LOCKED POSITION, CALL LIGHT WITHIN REACH, WILL CONTINUE TO MONITOR .
[2018-05-12 08:00] VITALS: BP 121/84
[2018-05-12] MEDS: MEROPENEM 500 MG in IV NS 0.9% 50 ML IV SCH ×2 (09:20→21:28)
[2018-05-12] MEDS: FOLIC ACID 1 MG TABLET PO SCH (09:20)
[2018-05-12] MEDS: HYDROCODONE/APAP 5/325MG 1 EACH TABLET PO SCH ×2 (09:21→21:29)
[2018-05-12] MEDS: QUETIAPINE FUMARATE 25 MG TABLET PO SCH ×3 (09:21→21:29)
[2018-05-12] MEDS: CARVEDILOL 6.25 MG TABLET PO SCH ×2 (09:22→21:00)
[2018-05-12] MEDS: HYDROGEL DRESSING 90 GM TUBE TP SCH (09:23)
[2018-05-12] MEDS: VALPROIC ACID 250 MG/5 ML UDC PO SCH ×2 (09:25→21:29)
[2018-05-12] MEDS: LINEZOLID RTU BAG 600 MG in PREMIX 1 EA IV SCH ×2 (10:39→22:32)
[2018-05-12] MEDS: INSULIN REGULAR, HUMAN 100 UNIT/ML 3 ML VIAL SQ PRN ×2 (13:08→17:00)
--- NOTE | 2018-05-12 15:46 | NUR ---
RN NOTES INSERTED IV LINE ON LW WITH #22.GOOD BLOOD RETURN NOTED.NOTED THAT PATIENT NOT REALLY FOCUSING ON US WHILE TALKING.PUT THE GLASS ON ABLE TO IDENTIFY NUMBERS AND WATCHING TV.SPOKE TO DAUGHTER GRISEL TOLD THAT SHE NOTICED HE IS NOT REALLY TALKING AND POOR CONCENTRATION SINCE ADMISSION.WILL CONTINUE TO MONITOR.
[2018-05-12 16:00] VITALS: BP 97/72
[2018-05-12] MEDS: ENOXAPARIN SODIUM 80 MG/0.8 ML DISP.SYRIN SQ SCH (17:03)
[2018-05-12 17:44] LABS: CALCIUM, SERUM 8.1 mg/dL (8.5-10.1); CREATININE 1.2 mg/dL (0.6-1.3); MAGNESIUM 2.1 mg/dL (1.8-2.4); PHOSPHORUS 2.2 mg/dL (2.5-4.9); POTASSIUM 3.9 mmol/L (3.5-5.1)
[2018-05-12 17:52] LABS: INR 1.85 (0.87-1.13)
[2018-05-12 17:57] LABS: HEMOGLOBIN 13.6 g/dL (13.5-17.5); RED BLOOD CELL COUNT(AUTO) 4.57 MIL/uL (4.5-6.0); WHITE BLOOD COUNT (AUTO) 6.9 K/uL (4.3-11.0)
[2018-05-12] MEDS: WARFARIN SODIUM 1 MG TABLET PO SCH (17:57)
[2018-05-12 17:58] LABS: HEMATOCRIT 43 % (39-51); MEAN CORPUSCULAR HEMOGLOBIN 30 PG (26.0-33.0); MEAN CORPUSCULAR HGB CONC 32 g/dl (31.0-36.0); MEAN CORPUSCULAR VOLUME 95 fL (80-96); PLATELET COUNT (AUTO) 159 /CMM (150-450); RDW COEFFICIENT OF VARIATION 18.7 (11.5-15.0)
[2018-05-12 17:59] LABS: BASOPHILS % (AUTO) 0.4 % (0.0-2.0); EOSINOPHILS % (AUTO) 3.5 % (0.0-6.0); LYMPHOCYTES # (AUTO) 0.6 /CMM (0.8-4.8); LYMPHOCYTES % (AUTO) 9.1 % (20.0-44.0); MONOCYTES # (AUTO) 0.5 /CMM (0.1-1.30); MONOCYTES % (AUTO) 7.4 % (2.0-12.0); NEUTROPHILS # (AUTO) 5.5 /CMM (1.8-8.9); NEUTROPHILS % (AUTO) 79.5 % (43.0-81.0)
--- NOTE | 2018-05-12 19:15 | NUR ---
RN M/S NOTE PATIENT IS AOX1, MUMBLED SPEECH, DAUGHTER AT BEDSIDE, PT DENIES ANY PAIN CURRENTLY, RESTING COMFORTABLY IN BED, ON 2L O2 VIA NC, NO CARDIAC OR RESPIRATORY DISTRESS, L WRIST #20G AND L HAND #22G PATENT FLUSHING WELL, SITE CDI, INCONTINENT SKIN KEPT CLEAN AND DRY. SAFETY MAINTAINED AT ALL TIMES, BED IN LOW LOCKED POSITION, CALL LIGHT WITHIN REACH, WILL CONTINUE TO MONITOR FOR ANY CHANGES IN CONDITION.
--- NOTE | 2018-05-12 19:32 | NUR ---
MS RN SHIFT END NOTE PATIENT IS AOX1, MUMBLED SPEECH, ANSWERING APPROPRIATELY WHEN ASKED ON WELL BEING, DENIES ANY PAIN CURRENTLY, RESTING COMFORTABLY IN BED, ON 2L O2 VIA NC, NO CARDIAC OR RESPIRATORY DISTRESS, L WRIST #20G AND PATENT FLUSHING WELL, SITE CDI, SAFETY MAINTAINED , BED IN LOW LOCKED POSITION, CALL LIGHT WITHIN REACH, SEEN BY DRIER ATTENDANT ANGY MADE AWARE ABOUT THE CONCERN REGARDING HIS EYE OPENING AND MOUTH DEVIATE WHILE TALKING.DRIER ATTENDANT SEEN PATIENT AT BEDSIDE AND ASSESSMENT DONE.NEGATIVE FOR STROKE ASSESSMENT.GOT NEW ORDERS.FAMILY IS AT BEDSIDE.SHE TOLD THAT NO NEW CHANGES NOTED.ENDORSED TO PM NURSE FOR NGOZI.
[2018-05-12 20:00] VITALS: BP 108/75
[2018-05-13] MEDS: IPRATROPIUM NEB FS 0.5 MG/2.5 ML AMPUL.NEB NEB SCH ×6 (03:17→22:58)
[2018-05-13 04:00] VITALS: BP 114/82
--- NOTE | 2018-05-13 07:44 | NUR ---
MS RN OPENING NOTE RECEIVED PATIENT IN BED, ALERT ORIENTED X1, ABLE TO COMMUNICATE BASIC NEEDS AND REPORT PAIN WHEN ASKED. PATIENT IS ON 2L O2 VIA NC. TOLERATING WELL. RESPIRATIONS EVEN AND UNLABORED. IN NO APPARENT DISTRESS OR DISCOMFORT AT THIS TIME. DENIES PAIN AND SOB. PATIENT IS INCONTINENT WITH DIAPER. L HAND 22G AND L WRIST 24G IVC, SL. PATENT AND INTACT. ALL NEEDS ATTENDED, KEPT CLEAN AND COMFORTABLE. SAFETY MEASURES IN PLACE, BED IN LOW LOCKED POSITION, SIDE RAILS UP X3, CALL LIGHT WITHIN EASY REACH, WILL CONTINUE TO MONITOR.
[2018-05-13 08:00] VITALS: BP 106/84
[2018-05-13] MEDS: BLOOD SUGAR DIAGNOSTIC 1 EACH STRIP VI SCH ×4 (08:27→21:01)
[2018-05-13] MEDS: MEROPENEM 500 MG in IV NS 0.9% 50 ML IV SCH ×2 (08:54→21:02)
[2018-05-13] MEDS: CARVEDILOL 6.25 MG TABLET PO SCH ×2 (08:55→21:00)
[2018-05-13] MEDS: VALPROIC ACID 250 MG/5 ML UDC PO SCH ×2 (08:56→21:01)
[2018-05-13] MEDS: HYDROCODONE/APAP 5/325MG 1 EACH TABLET PO SCH ×2 (08:56→21:01)
[2018-05-13] MEDS: QUETIAPINE FUMARATE 25 MG TABLET PO SCH ×3 (08:57→21:01)
[2018-05-13] MEDS: FOLIC ACID 1 MG TABLET PO SCH (08:57)
[2018-05-13] MEDS: HYDROGEL DRESSING 90 GM TUBE TP SCH (08:59)
[2018-05-13] MEDS: ENOXAPARIN SODIUM 80 MG/0.8 ML DISP.SYRIN SQ SCH ×2 (08:59→21:03)
[2018-05-13] MEDS: LINEZOLID 600 MG TABLET PO SCH ×2 (10:42→21:01)
--- NOTE | 2018-05-13 10:53 | NUR ---
UNABLE TO PROVIDE HHN TX, PT WORKING WITH SPEECH THERAPY
[2018-05-13] MEDS: INSULIN REGULAR, HUMAN 100 UNIT/ML 3 ML VIAL SQ PRN ×2 (12:10→17:05)
[2018-05-13 15:55] LABS: INR 1.69 (0.87-1.13)
[2018-05-13 16:00] VITALS: BP 91/59
[2018-05-13 16:53] LABS: CALCIUM, SERUM 8.3 mg/dL (8.5-10.1); POTASSIUM 4.2 mmol/L (3.5-5.1)
[2018-05-13] MEDS: WARFARIN SODIUM 1 MG TABLET PO SCH (17:05)
[2018-05-13 17:11] LABS: HEMATOCRIT 43 % (39-51); HEMOGLOBIN 13.7 g/dL (13.5-17.5); MEAN CORPUSCULAR HEMOGLOBIN 30 PG (26.0-33.0); MEAN CORPUSCULAR HGB CONC 32 g/dl (31.0-36.0); MEAN CORPUSCULAR VOLUME 94 fL (80-96); RED BLOOD CELL COUNT(AUTO) 4.57 MIL/uL (4.5-6.0); WHITE BLOOD COUNT (AUTO) 7.4 K/uL (4.3-11.0)
[2018-05-13 17:12] LABS: BASOPHILS # (AUTO) 0.1 /CMM (0.0-0.2); BASOPHILS % (AUTO) 1.1 % (0.0-2.0); EOSINOPHILS % (AUTO) 2.7 % (0.0-6.0); LYMPHOCYTES # (AUTO) 0.8 /CMM (0.8-4.8); LYMPHOCYTES % (AUTO) 10.3 % (20.0-44.0); MONOCYTES # (AUTO) 0.5 /CMM (0.1-1.30); MONOCYTES % (AUTO) 6.1 % (2.0-12.0); NEUTROPHILS # (AUTO) 5.9 /CMM (1.8-8.9); NEUTROPHILS % (AUTO) 79.8 % (43.0-81.0); PLATELET COUNT (AUTO) 145 /CMM (150-450); RDW COEFFICIENT OF VARIATION 18.7 (11.5-15.0)
--- NOTE | 2018-05-13 18:00 | NUR ---
PATIENT DID NOT TOLERATE CHOPPED DIET VERY WELL, KEPT COUGHING AND HAVING DIFFICULT TIME SWALLOWING. WILL OBTAIN ORDER TO SWITCH BACK TO PUREE DIET AND CONTINUE TO MONITOR.
--- NOTE | 2018-05-13 19:20 | NUR ---
RN M/S NOTE RECEIVED REPORT FROM AM NURSE, PATIENT IS AOX1, MUMBLED SPEECH, RESTING COMFORTABLY IN BED, ON 2L O2 VIA NC, NO CARDIAC OR RESPIRATORY DISTRESS, L WRIST #24G AND L HAND #22G PATENT FLUSHING WELL, SITES CDI, INCONTINENT SKIN KEPT CLEAN AND DRY. SAFETY MAINTAINED AT ALL TIMES, BED IN LOW LOCKED POSITION, CALL LIGHT WITHIN REACH, WILL CONTINUE TO MONITOR FOR ANY CHANGES IN CONDITION.
--- NOTE | 2018-05-13 19:55 | NUR ---
MS RN CLOSING NOTE PATIENT IN BED, ALERT ORIENTED X1, ABLE TO COMMUNICATE BASIC NEEDS AND REPORT PAIN WHEN ASKED. PATIENT IS ON 2L O2 VIA NC. TOLERATING WELL. RESPIRATIONS EVEN AND UNLABORED. IN NO APPARENT DISTRESS OR DISCOMFORT AT THIS TIME. DENIES PAIN AND SOB. PATIENT IS INCONTINENT WITH DIAPER. L HAND 22G AND L WRIST 24G IVC, SL. PATENT AND INTACT. ALL NEEDS ATTENDED, KEPT CLEAN AND COMFORTABLE. SAFETY MEASURES IN PLACE, BED IN LOW LOCKED POSITION, SIDE RAILS UP X3, CALL LIGHT WITHIN EASY REACH, WILL ENDORSE TO PM NURSE FOR NGOZI.
[2018-05-13 20:00] VITALS: BP 93/66
[2018-05-13] MEDS: *INSULIN REGULAR(HUMULIN R)HUM 100 UNIT/ML VIAL SQ PRN (21:11)
[2018-05-14] MEDS: IPRATROPIUM NEB FS 0.5 MG/2.5 ML AMPUL.NEB NEB SCH ×6 (03:32→23:18)
[2018-05-14 04:00] VITALS: BP_SYST 139; BP_SYST 99; BP_DIAS 64; BP_DIAS 81
[2018-05-14 06:03] VITALS: BP 99/64
[2018-05-14 06:21] LABS: BASOPHILS # (AUTO) 0.1 /CMM (0.0-0.2); BASOPHILS % (AUTO) 1.1 % (0.0-2.0); EOSINOPHILS % (AUTO) 2.4 % (0.0-6.0); HEMATOCRIT 37 % (39-51); HEMOGLOBIN 12.8 g/dL (13.5-17.5); LYMPHOCYTES # (AUTO) 0.9 /CMM (0.8-4.8); MEAN CORPUSCULAR HEMOGLOBIN 32 PG (26.0-33.0); MEAN CORPUSCULAR HGB CONC 35 g/dl (31.0-36.0); MEAN CORPUSCULAR VOLUME 91 fL (80-96); MONOCYTES # (AUTO) 0.7 /CMM (0.1-1.30); MONOCYTES % (AUTO) 7.5 % (2.0-12.0); NEUTROPHILS # (AUTO) 6.9 /CMM (1.8-8.9); PLATELET COUNT (AUTO) 113 /CMM (150-450); RDW COEFFICIENT OF VARIATION 17.9 (11.5-15.0); RED BLOOD CELL COUNT(AUTO) 4.06 MIL/uL (4.5-6.0); WHITE BLOOD COUNT (AUTO) 8.8 K/uL (4.3-11.0)
[2018-05-14 07:08] LABS: MAGNESIUM 2.2 mg/dL (1.8-2.4); PHOSPHORUS 2.3 mg/dL (2.5-4.9); POTASSIUM 4.2 mmol/L (3.5-5.1)
--- NOTE | 2018-05-14 07:10 | NUR ---
MS RN OPENING NOTE PATIENT IS AOX1, MUMBLED SPEECH, ANSWERING APPROPRIATELY WHEN ASKED ON WELL BEING, DENIES ANY PAIN CURRENTLY, RESTING COMFORTABLY IN BED, ON 2L O2 VIA NC, NO CARDIAC OR RESPIRATORY DISTRESS, L WRIST #22G AND L HAND#24G PATENT FLUSHING WELL, SITE CDI, SAFETY MAINTAINED , BED IN LOW LOCKED POSITION, CALL LIGHT WITHIN REACH, WILL CONTINUE TO MONITOR .
[2018-05-14 07:11] LABS: INR 1.73 (0.87-1.13)
[2018-05-14] MEDS: BLOOD SUGAR DIAGNOSTIC 1 EACH STRIP VI SCH ×4 (07:30→21:30)
[2018-05-14 08:00] VITALS: BP 90/62
[2018-05-14 08:46] LABS: ALBUMIN 2.4 g/dL (3.4-5.0); BILIRUBIN,TOTAL 0.6 mg/dL (0.2-1.0); TOTAL PROTEIN, SERUM 5.4 g/dL (6.4-8.2)
[2018-05-14] MEDS: QUETIAPINE FUMARATE 25 MG TABLET PO SCH ×3 (08:58→21:28)
[2018-05-14] MEDS: LINEZOLID 600 MG TABLET PO SCH ×2 (08:58→21:29)
[2018-05-14] MEDS: VALPROIC ACID 250 MG/5 ML UDC PO SCH ×2 (08:58→21:27)
[2018-05-14] MEDS: FOLIC ACID 1 MG TABLET PO SCH (08:58)
[2018-05-14] MEDS: MEROPENEM 500 MG in IV NS 0.9% 50 ML IV SCH ×2 (08:59→21:27)
[2018-05-14] MEDS: HYDROCODONE/APAP 5/325MG 1 EACH TABLET PO SCH ×2 (08:59→21:28)
[2018-05-14] MEDS: CARVEDILOL 6.25 MG TABLET PO SCH ×2 (09:00→21:29)
[2018-05-14] MEDS: HYDROGEL DRESSING 90 GM TUBE TP SCH (09:01)
[2018-05-14] MEDS: ENOXAPARIN SODIUM 80 MG/0.8 ML DISP.SYRIN SQ SCH ×2 (09:01→21:32)
[2018-05-14] MEDS ORDERED: K PHOS NEUTRAL 250 MG TABLET PO ONE (11:30)
[2018-05-14] MEDS: INSULIN REGULAR, HUMAN 100 UNIT/ML 3 ML VIAL SQ PRN ×2 (12:26→21:31)
[2018-05-14] MEDS: HYDROCODONE/APAP 5/325MG 1 EACH TABLET PO PRN ×2 (13:47→17:58)
[2018-05-14 15:33] LABS: INR 1.76 (0.87-1.13)
[2018-05-14 16:00] VITALS: BP 89/60
[2018-05-14] MEDS: WARFARIN SODIUM 5 MG TABLET PO SCH (17:07)
[2018-05-14 18:30] VITALS: BP 94/55
--- NOTE | 2018-05-14 19:06 | NUR ---
MS RN SHIFT END NOTE PATIENT IS AOX1, ANSWERING APPROPRIATELY WHEN ASKED ON WELL BEING, DENIES ANY PAIN CURRENTLY, RESTING COMFORTABLY IN BED, ON 2L O2 VIA NC, NO CARDIAC OR RESPIRATORY DISTRESS, L WRIST #22G AND L HAND#24G PATENT FLUSHING WELL, SITE CDI, SAFETY MAINTAINED , BED IN LOW LOCKED POSITION, CALL LIGHT WITHIN REACH,SEEN BY BOILER OUT ANGY WITH NO NEW ORDERS.FAMILY VISITED THE PATIENT. WILL CONTINUE TO MONITOR ENDORSE TO POM NURSE FOR NGOZI.
[2018-05-14 20:00] VITALS: BP 114/64
--- NOTE | 2018-05-14 20:05 | NUR ---
RN OPENING NOTES RECEIVED REPORT FROM ORTIZ LANIER. PATIENT A/A/O X1, RESPONSIVE TO NAME & TOUCH. ABLE TO STATE PAIN & MUMBLES WORDS. BREATHING EVEN & UNLABORED, TOLERATING O2 @ 2LPM. SKIN WARM, DRY & INTACT W/ PULSES PRESENT & BOUNDING. NO S/S OF RESPIRATORY OR CARDIAC DISTRESS. LEFT HAND IV #22 & LEFT WRIST IV #24 INTACT & PATENT W/ DRESSING CDI, SALINE LOCKED. NO S/S OF INFILTRATION NOTED. NO S/S OF PAIN OR DISCOMFORT @ THIS TIME. PATIENT RESTING COMFORTABLY IN BED. TURNED & REPOSITIONED FOR COMFORT. SAFETY MEASURES IN PLACE W/ BED ALARM & HOB ELEVATED FOR ASPIRATION PRECAUTIONS. WILL CONTINUE TO MONITOR.
[2018-05-15] MEDS: IPRATROPIUM NEB FS 0.5 MG/2.5 ML AMPUL.NEB NEB SCH ×6 (02:31→23:28)
[2018-05-15 04:00] VITALS: BP 114/94
[2018-05-15 06:32] LABS: INR 2.09 (0.87-1.13)
--- NOTE | 2018-05-15 07:30 | NUR ---
RN NOTES RECEIVED PATIENT IN BED ASLEEP WITH BREATHING NORMAL, EVEN AND UNLABORED. NO SOB NOTED. NO ACUTE DISTRESS NOTED. L WRIST IV IS PATENT AND INTACT. KEPT CLEAN, DRY AND COMFORTABLE. ALL NEEDS ATTENDED. SAFETY MEASURE OBSERVED.CALL LIGHT WITH IN REACH. WILL CONT TO MONITOR.
[2018-05-15 08:00] VITALS: BP 113/77
[2018-05-15] MEDS: BLOOD SUGAR DIAGNOSTIC 1 EACH STRIP VI SCH ×4 (08:13→21:17)
[2018-05-15] MEDS: VALPROIC ACID 250 MG/5 ML UDC PO SCH ×2 (08:14→21:16)
[2018-05-15] MEDS: HYDROCODONE/APAP 5/325MG 1 EACH TABLET PO SCH ×2 (08:15→21:12)
[2018-05-15] MEDS: QUETIAPINE FUMARATE 25 MG TABLET PO SCH ×3 (08:15→21:15)
[2018-05-15] MEDS: FOLIC ACID 1 MG TABLET PO SCH (08:15)
[2018-05-15] MEDS: ENOXAPARIN SODIUM 80 MG/0.8 ML DISP.SYRIN SQ SCH ×2 (08:15→21:15)
[2018-05-15] MEDS: CARVEDILOL 6.25 MG TABLET PO SCH ×2 (08:16→21:00)
[2018-05-15] MEDS: HYDROGEL DRESSING 90 GM TUBE TP SCH (08:16)
[2018-05-15 12:00] VITALS: BP 113/77
[2018-05-15] MEDS: INSULIN REGULAR, HUMAN 100 UNIT/ML 3 ML VIAL SQ PRN ×2 (12:33→18:23)
--- NOTE | 2018-05-15 14:00 | NUR ---
RN NOTES REPORT GIVEN TO ROB LANIER FOR CONTINUITY OF CARE.
[2018-05-15 16:04] LABS: INR 2.24 (0.87-1.13)
[2018-05-15] MEDS: WARFARIN SODIUM 5 MG TABLET PO SCH (18:11)
[2018-05-15] MEDS: HYDROCODONE/APAP 5/325MG 1 EACH TABLET PO PRN (18:11)
--- NOTE | 2018-05-15 18:47 | NUR ---
RN CLOSING NOTE PT IN BED RESTING. NO S/S OF RESP DISTRESS OR SOB. PT APPEARED ANXIOUS OR IN PAIN AND WAS GIVEN PRN NORCO. RESTING QUIETLY IN BED AT THIS MOMENT. ALL PT NEEDS ANTICIPATED AND MET, SAFETY MEASURES IN PLACE, CALL LIGHT WITHIN REACH. WILL ENDORSE TO INDUSTRIAL SAFETY ENGINEER FOR NGOZI.
--- NOTE | 2018-05-15 19:56 | NUR ---
RN INITIAL NOTES RECEIVED PATIENT IN BED AWAKE, BREATHING EVEN AND UNLABORED. NO SOB NOTED. NO ACUTE DISTRESS NOTED. PAIN MEDS GIVEN PER AM SHIFT RN, REASSESSED 1910 PM PT DENIES ANY PAIN. L WRIST IV IS PATENT AND INTACT. KEPT CLEAN, DRY AND COMFORTABLE. ALL NEEDS ATTENDED. SAFETY MEASURE OBSERVED.CALL LIGHT WITH IN REACH. WILL CONT TO MONITOR.
[2018-05-15 20:00] VITALS: BP 114/69
--- NOTE | 2018-05-15 21:32 | NUR ---
2100 COREG 6.25 MG HELD BP TRENDING LOW 114/69 87 WILL CONT TO MONITOR.
[2018-05-16] MEDS: IPRATROPIUM NEB FS 0.5 MG/2.5 ML AMPUL.NEB NEB SCH ×6 (03:13→23:37)
[2018-05-16 04:00] VITALS: BP 110/83
[2018-05-16 06:53] VITALS: BP 110/83
[2018-05-16 07:00] LABS: BASOPHILS % (AUTO) 0.6 % (0.0-2.0); EOSINOPHILS % (AUTO) 2.2 % (0.0-6.0); HEMATOCRIT 43 % (39-51); HEMOGLOBIN 13.8 g/dL (13.5-17.5); LYMPHOCYTES # (AUTO) 1.2 /CMM (0.8-4.8); MEAN CORPUSCULAR HEMOGLOBIN 30 PG (26.0-33.0); MEAN CORPUSCULAR HGB CONC 32 g/dl (31.0-36.0); MEAN CORPUSCULAR VOLUME 94 fL (80-96); MONOCYTES # (AUTO) 0.5 /CMM (0.1-1.30); MONOCYTES % (AUTO) 7.7 % (2.0-12.0); NEUTROPHILS # (AUTO) 4.2 /CMM (1.8-8.9); NEUTROPHILS % (AUTO) 69.5 % (43.0-81.0); PLATELET COUNT (AUTO) 111 /CMM (150-450); RED BLOOD CELL COUNT(AUTO) 4.56 MIL/uL (4.5-6.0); WHITE BLOOD COUNT (AUTO) 6.1 K/uL (4.3-11.0)
[2018-05-16 07:19] LABS: ALBUMIN 2.5 g/dL (3.4-5.0); BILIRUBIN,TOTAL 0.8 mg/dL (0.2-1.0); CALCIUM, SERUM 8.3 mg/dL (8.5-10.1); CREATININE 1.2 mg/dL (0.6-1.3); MAGNESIUM 2.2 mg/dL (1.8-2.4); PHOSPHORUS 3.1 mg/dL (2.5-4.9); POTASSIUM 4.7 mmol/L (3.5-5.1); TOTAL PROTEIN, SERUM 5.8 g/dL (6.4-8.2)
[2018-05-16 07:29] LABS: INR 2.4 (0.87-1.13)
--- NOTE | 2018-05-16 07:32 | NUR ---
RN CLOSING NOTES ENDORSED PATIENT IN BED AWAKE, BREATHING EVEN AND UNLABORED. NO SOB NOTED. NO ACUTE DISTRESS NOTED. PAIN MEDS GIVEN PER AM SHIFT RN, REASSESSED 1910 PM PT DENIES ANY PAIN. L WRIST IV IS PATENT AND INTACT. KEPT CLEAN, DRY AND COMFORTABLE. ALL NEEDS ATTENDED. SAFETY MEASURE OBSERVED.CALL LIGHT WITH IN REACH. WILL CONT TO MONITOR.
--- NOTE | 2018-05-16 07:37 | NUR ---
RN OPENING NOTES RECEIVED PT LAYING IN BED, WITH HOB ELEVATED. PT IS AWAKE AND RESPONSIVE, AFEBRILE. RESPIRATIONS ARE EVEN AND UNLABORED. NOT IN ANY ACUTE DISTRESS NOTED. IV SITE INTACT, NO INFILTRATION NOTED. DRESSING KEPT CLEAN AND DRY. HOB KEPT ELEVATED TO PREVENT ASPIRATION. WILL REPOSITION PER PROTOCOL. SAFETY MEASURES ARE IN PLACE. WILL CONTINUE TO MONITOR THROUGHOUT SHIFT FOR CONTINUITY OF CARE.
[2018-05-16] MEDS: BLOOD SUGAR DIAGNOSTIC 1 EACH STRIP VI SCH ×4 (07:52→21:29)
[2018-05-16 08:00] VITALS: BP 100/79
[2018-05-16] MEDS: HYDROCODONE/APAP 5/325MG 1 EACH TABLET PO SCH ×2 (08:16→21:20)
[2018-05-16] MEDS: VALPROIC ACID 250 MG/5 ML UDC PO SCH ×2 (08:16→21:20)
[2018-05-16] MEDS: QUETIAPINE FUMARATE 25 MG TABLET PO SCH ×3 (08:16→21:20)
[2018-05-16] MEDS: FOLIC ACID 1 MG TABLET PO SCH (08:16)
[2018-05-16] MEDS: HYDROGEL DRESSING 90 GM TUBE TP SCH (08:17)
[2018-05-16] MEDS: ENOXAPARIN SODIUM 80 MG/0.8 ML DISP.SYRIN SQ SCH ×2 (08:17→21:22)
[2018-05-16] MEDS: CARVEDILOL 6.25 MG TABLET PO SCH ×2 (08:18→21:00)
[2018-05-16] MEDS: INSULIN REGULAR, HUMAN 100 UNIT/ML 3 ML VIAL SQ PRN ×2 (11:54→16:50)
[2018-05-16 12:00] VITALS: BP 102/70
[2018-05-16 16:00] VITALS: BP 102/84
[2018-05-16] MEDS: WARFARIN SODIUM 5 MG TABLET PO SCH (16:36)
--- NOTE | 2018-05-16 18:37 | NUR ---
RN CLOSING NOTES ALL DUE MEDS GIVEN, NEEDS MET AND ANTIIPATED. PT REMAIN A/O 1, HOB ELEVATED TO PREVENT ASPIRATION. PT IS AWAKE AND RESPONSIVE, AFEBRILE. RESPIRATIONS ARE EVEN AND UNLABORED. NOT IN ANY ACUTE DISTRESS NOTED. IV SITE INTACT, NO INFILTRATION NOTED. DRESSING KEPT CLEAN AND DRY. REPOSITIONED PER PROTOCOL. SAFETY MEASURES ARE IN PLACE. WILL ENDORSE TO NEXT SHIFT FOR CONTINUITY OF CARE.
[2018-05-16 20:00] VITALS: BP 114/69
--- NOTE | 2018-05-16 20:00 | NUR ---
MS/RN OPENING NOTES PATIENT IN BED, HOB ELEVATED, OBSERVED SOME FREQUENT SCREAMING , BUT ABLE TO COOPERTAE, REPOSTION FOR COMFORT, RECEIVED ENDORSEMENT FROM AM RN FOR NGOZI, PER MD AND PHARMACY TO ADMINISTER LAST DOSE OF LOVENOX UNTIL PT/IN REACH 2.5, WILL MONITOR.
--- NOTE | 2018-05-16 21:00 | NUR ---
MS/RN NOTES HR MONITORING WITH HR REACHES FROM 40 TO 78. CURRENTLY PULSE RATE AT 53, INFORM CHARGE NURSE FOR MONITORING.
--- NOTE | 2018-05-17 00:34 | NUR ---
ms/rn notes patiient provided attended, ept skin intact and dry, keep comfortable , bed bath provided. provided sleep medication, as patient observe difficulty sleeping.
[2018-05-17] MEDS: IPRATROPIUM NEB FS 0.5 MG/2.5 ML AMPUL.NEB NEB SCH ×6 (03:19→23:30)
[2018-05-17 04:00] VITALS: BP 113/58
[2018-05-17] MEDS: HYDROCODONE/APAP 5/325MG 1 EACH TABLET PO PRN ×2 (05:41→15:22)
--- NOTE | 2018-05-17 05:45 | NUR ---
MS/RN NOTES NORCO 5-325 MG GIVEN FOR SEVERE PAIN, REPORTED AND OBSERVED, UNABLE TO RELAX.
[2018-05-17 06:18] LABS: INR 3.04 (0.87-1.13)
--- NOTE | 2018-05-17 06:33 | NUR ---
MS/RN OPENING NOTES PATIENT IN BED, REQUIRE FREQUENT REORIENTATION AND MONITORING. MONITORED AT ALL TIMES, PROVIDE AND ATTEND TO ALL NEEDS, PROVIDE THICKENED FLUIDS, REPOSITION, KEPT SKIN INTACT AND DRY, PAIN MONITORED AND ADMINISTERED NEEDED MEDICATION FOR PAIN NORCO-5325 MG, WILL ENDORSE TO AM RN FOR NGOZI. WILL MONITOR. CALL LIGHTS WITHIN REACH, BED IN LOCK POSITION.
--- NOTE | 2018-05-17 07:30 | NUR ---
RN OPENING NOTES RECEIVED PT. IN BED A&OX1. PT. IS CONFUSED, AND YELLING "HELP, HELP". PT. WAS REINFORCED THAT WE ARE HERE TO HELP HIM, AND PT. IMMEDIATELY CALMED DOWN. PT. IS BREATHING UNLABORED ON OXYGEN AT 4L/MIN VIA NASAL CANNULA. IV ACCESS IS INTACT AND PATENT. BED IS IN LOWEST, AND LOCKED POSITION. CALL LIGHT WITHIN REACH, AND PT. WAS PROVIDED ORIENTATION. ALL NEEDS MET AT THIS TIME WILL CONTINUE TO ASSESS AND MONITOR.
[2018-05-17 08:00] VITALS: BP 91/73
[2018-05-17] MEDS: BLOOD SUGAR DIAGNOSTIC 1 EACH STRIP VI SCH ×4 (08:19→22:18)
[2018-05-17] MEDS: INSULIN REGULAR, HUMAN 100 UNIT/ML 3 ML VIAL SQ PRN ×2 (08:23→17:29)
[2018-05-17] MEDS: FOLIC ACID 1 MG TABLET PO SCH (08:25)
[2018-05-17] MEDS: VALPROIC ACID 250 MG/5 ML UDC PO SCH ×2 (08:25→21:52)
[2018-05-17] MEDS: QUETIAPINE FUMARATE 25 MG TABLET PO SCH ×3 (08:26→21:52)
[2018-05-17] MEDS: ENOXAPARIN SODIUM 80 MG/0.8 ML DISP.SYRIN SQ SCH (08:26)
[2018-05-17] MEDS: HYDROGEL DRESSING 90 GM TUBE TP SCH (08:26)
[2018-05-17] MEDS: CARVEDILOL 6.25 MG TABLET PO SCH ×2 (09:00→21:00)
[2018-05-17] MEDS: HYDROCODONE/APAP 5/325MG 1 EACH TABLET PO SCH ×2 (09:03→21:52)
[2018-05-17 12:00] VITALS: BP 97/72
[2018-05-17] MEDS ORDERED: IV NS 0.9% 500 ML IV ONE (12:30)
[2018-05-17 16:00] VITALS: BP 92/66
[2018-05-17] MEDS: WARFARIN SODIUM 5 MG TABLET PO SCH (17:23)
--- NOTE | 2018-05-17 19:31 | NUR ---
RN CLOSING NOTES PT. IS IN BED A&OX1. PT. IS CONFUSED, PT. IS QUIET. NO S/S OF ACUTE DISTRESS. PT. IS BREATHING UNLABORED ON OXYGEN AT 4L/MIN VIA NASAL CANNULA. IV ACCESS IS INTACT AND PATENT. BED IS IN LOWEST, AND LOCKED POSITION. CALL LIGHT WITHIN REACH. ALL NEEDS MET AT THIS TIME. WILL ENDORSE REPORT TO NURSE.
[2018-05-17 20:00] VITALS: BP 91/69
--- NOTE | 2018-05-17 20:00 | NUR ---
RN INITIAL NOTES RECEIVED PT. IN BED A&OX1. PT. IS CONFUSED, AND YELLING "HELP, HELP". PT. WAS REINFORCED THAT WE ARE HERE TO HELP HIM, AND PT. IMMEDIATELY CALMED DOWN. PT. IS BREATHING UNLABORED ON OXYGEN AT 4L/MIN VIA NASAL CANNULA. IV ACCESS IS INTACT AND PATENT S/L. BED IS IN LOWEST, AND LOCKED POSITION. CALL LIGHT WITHIN REACH, AND PT. ALL NEEDS MET AT THIS TIME WILL CONTINUE TO ASSESS AND MONITOR.
[2018-05-18] MEDS: IPRATROPIUM NEB FS 0.5 MG/2.5 ML AMPUL.NEB NEB SCH ×5 (03:30→20:08)
[2018-05-18 04:00] VITALS: BP 86/68
--- NOTE | 2018-05-18 07:30 | NUR ---
RN M/S INITIAL NOTES: RECEIVED PT IN BED AWAKE, A&O X1 WITH CONFUSION NOTED. O2 VIA NC AT 3LPM SATURATING 97%. DENIES ANY PAIN OR DISCOMFORT AT THIS TIME. IV TO L WRIST IN PLACE, PATENT AND INTACT. BED IN LOW LOCKED POSITION, CALL LIGHT WITHIN REACH. PLAN OF CARE DISCUSSED WITH PT. WILL CONTINUE TO MONITOR.
[2018-05-18] MEDS: BLOOD SUGAR DIAGNOSTIC 1 EACH STRIP VI SCH ×4 (07:33→22:02)
[2018-05-18] MEDS: CARVEDILOL 6.25 MG TABLET PO SCH ×2 (09:00→21:00)
[2018-05-18] MEDS: HYDROCODONE/APAP 5/325MG 1 EACH TABLET PO SCH ×2 (09:00→22:01)
[2018-05-18] MEDS: VALPROIC ACID 250 MG/5 ML UDC PO SCH ×2 (09:03→22:01)
[2018-05-18] MEDS: HYDROGEL DRESSING 90 GM TUBE TP SCH (09:04)
[2018-05-18] MEDS: QUETIAPINE FUMARATE 25 MG TABLET PO SCH ×3 (09:04→22:02)
[2018-05-18] MEDS: FOLIC ACID 1 MG TABLET PO SCH (09:04)
[2018-05-18] MEDS: HYDROCODONE/APAP 5/325MG 1 EACH TABLET PO PRN (10:16)
--- NOTE | 2018-05-18 11:03 | NUR ---
DISCHARGE ORDER RECEIVED. PER CHARGE NURSE, PT WILL BE RETURNING TO [facility], ACADEMIC INTERVENTIONIST AT 1400. FAMILY NOTIFIED.
--- NOTE | 2018-05-18 11:50 | NUR ---
REPORT GIVEN TO DOLORES Landin LVN AT [facility]. WILL BE GOING INTO ROOM 26A.
[2018-05-18 12:00] VITALS: BP 96/75
--- NOTE | 2018-05-18 13:30 | NUR ---
PT CLEANED, NEW GOWN PUT ON. WOUND TREATMENT DONE TO L ANKLE. PICTURES TAKEN AND PLACED IN CHART.
--- NOTE | 2018-05-18 14:00 | NUR ---
VITAL SIGNS CHECKED BEFORE DISCHARGE: BP 96/65, HR 91. AWAITING TRANSPORTATION
--- NOTE | 2018-05-18 15:30 | NUR ---
TRANSPORTATION ARRIVED, BP CHECKED: 89/56. BP TOO LOW FOR TRANSPORT. MD MADE AWARE WITH NEW ORDER FOR 500CC NS BOLUS X1. CARRIED OUT.
--- NOTE | 2018-05-18 15:40 | NUR ---
RT PATIENT BEING DISCHARGED
[2018-05-18] MEDS ORDERED: IV NS 0.9% 500 ML IV ONE (16:30)
[2018-05-18] MEDS: WARFARIN SODIUM 5 MG TABLET PO SCH (17:38)
[2018-05-18 18:00] VITALS: BP 106/64
--- NOTE | 2018-05-18 18:00 | NUR ---
AFTER 500CC BOLUS IV, BP WENT UP TO 106/64 HR 84.
[2018-05-18] MEDS: INSULIN REGULAR, HUMAN 100 UNIT/ML 3 ML VIAL SQ PRN (18:19)
--- NOTE | 2018-05-18 19:30 | NUR ---
RN M/S END NOTES: PT REMAINS IN BED, SLEEPING BUT EASY TO AROUSE. ALERT X1. IV TO R HAND INTACT AND FLUSHES WELL. BED IN LOW LOCKED POSITION, CALL LIGHT WITHIN REACH. WILL ENDORSE TO PM SHIFT FOR CONTINUITY OF CARE.
--- NOTE | 2018-05-18 19:35 | NUR ---
TRANSPORT ARRIVED AGAIN FOR D/C. PT BP 76/44. ANGY NOTIFIED. HOLD D/C AND OBSERVE PT OVERNIGHT.LABS ORDERED FOR TOMORROW AM.
[2018-05-18 20:00] VITALS: BP 94/50
--- NOTE | 2018-05-18 20:45 | NUR ---
RN PER ANGY ARMSTRONG, DECREASE COUMADIN ORDER TO 3MG PO DAILY, CBC, BMP AND PT/INR IN TOMORROW AM LABS.
[2018-05-18] MEDS: *INSULIN REGULAR(HUMULIN R)HUM 100 UNIT/ML VIAL SQ PRN (22:17)
[2018-05-19] VITALS: BP 97/58
[2018-05-19] MEDS: IPRATROPIUM NEB FS 0.5 MG/2.5 ML AMPUL.NEB NEB SCH ×7 (00:08→22:59)
[2018-05-19 04:00] VITALS: BP 90/66
[2018-05-19 06:35] LABS: BASOPHILS % (AUTO) 0.1 % (0.0-2.0); EOSINOPHILS % (AUTO) 0.1 % (0.0-6.0); HEMATOCRIT 41 % (39-51); HEMOGLOBIN 13.3 g/dL (13.5-17.5); LYMPHOCYTES # (AUTO) 0.8 /CMM (0.8-4.8); LYMPHOCYTES % (AUTO) 7.1 % (20.0-44.0); MEAN CORPUSCULAR HEMOGLOBIN 30 PG (26.0-33.0); MEAN CORPUSCULAR HGB CONC 33 g/dl (31.0-36.0); MEAN CORPUSCULAR VOLUME 93 fL (80-96); MONOCYTES # (AUTO) 1.1 /CMM (0.1-1.30); MONOCYTES % (AUTO) 9.7 % (2.0-12.0); NEUTROPHILS # (AUTO) 9.9 /CMM (1.8-8.9); PLATELET COUNT (AUTO) 82 /CMM (150-450); RDW COEFFICIENT OF VARIATION 18.7 (11.5-15.0); RED BLOOD CELL COUNT(AUTO) 4.38 MIL/uL (4.5-6.0); WHITE BLOOD COUNT (AUTO) 11.9 K/uL (4.3-11.0)
[2018-05-19 06:41] LABS: CALCIUM, SERUM 8.1 mg/dL (8.5-10.1); CREATININE 2.4 mg/dL (0.6-1.3); POTASSIUM 5.2 mmol/L (3.5-5.1)
--- NOTE | 2018-05-19 07:34 | NUR ---
MS RN OPENING NOTES RECEIVED PATIENT AWAKE IN BED IN NO ACUTE SIGNS OF DISTRESS. HOB ELEVATED. A/O X2. VERBALLY RESPONSIVE, DENIES PAIN OR DISCOMFORTS AT THIS TIME. ON O2 @ 3L/MIN VIA NC, TOLERATING WELL WITH NO SOB NOTED. IV ACCESS ON LEFT WRIST PATENT AND INTACT, FLUSHES WELL. SAFETY MEASURES IN PLACE. BED IN LOW/LOCKED POSITION WITH SIDE-RAILS UP X3. CALL LIGHT WITHIN REACH. WILL CONTINUE TO MONITOR.
[2018-05-19] MEDS: *INSULIN REGULAR(HUMULIN R)HUM 100 UNIT/ML VIAL SQ PRN ×2 (07:39→22:23)
[2018-05-19] MEDS: BLOOD SUGAR DIAGNOSTIC 1 EACH STRIP VI SCH ×4 (07:42→22:20)
[2018-05-19 08:00] VITALS: BP 95/63
--- NOTE | 2018-05-19 08:09 | NUR ---
WOUND CARE CONSULT: PT SEEN FOR RASH TO BUTTOCKS, GROIN AND PERINEAL AREAS WITH OPEN SKIN TO GLUTEAL CREASE (MOISTURE ASSOCIATED). PT IS INCONTINENT. ALL WOUND AND SKIN CARE RECOMMENDATIONS DISCUSSED WITH NURSING STAFF. PT ON DIRK ISOFLEX LOW AIRLOSS BED. SACRAL SCARRING NOTED. ALL SKIN PROTECTION AND PRESSURE ULCER PREVENTION MEASURES IN PLACE. WILL SEE PRN. GRANADOS IN AGREEMENT WITH PLAN OF CARE. Addendum: 05/19/18 at 12 by RENALDO BARNEY Amended: Links added. Addendum: 05/19/18 at 0814 by RENALDO BARNEY DEFER TO DPM FOR LOWER EXTREMITIES.
[2018-05-19] MEDS: FOLIC ACID 1 MG TABLET PO SCH (08:29)
[2018-05-19] MEDS: VALPROIC ACID 250 MG/5 ML UDC PO SCH ×2 (08:29→22:21)
[2018-05-19] MEDS: QUETIAPINE FUMARATE 25 MG TABLET PO SCH ×3 (08:29→22:21)
[2018-05-19] MEDS: CARVEDILOL 6.25 MG TABLET PO SCH ×2 (08:29→21:00)
[2018-05-19] MEDS: HYDROGEL DRESSING 90 GM TUBE TP SCH (08:31)
[2018-05-19] MEDS: CLOTRIMAZOLE 1% 15 GM TUBE TP SCH ×2 (08:53→16:22)
[2018-05-19] MEDS: HYDROCODONE/APAP 5/325MG 1 EACH TABLET PO SCH (08:53)
[2018-05-19 09:20] LABS: INR 7.87 (0.87-1.13)
--- NOTE | 2018-05-19 09:37 | NUR ---
RN NOTES RECEIVED CALL FROM LAB THAT PT'S HAS HIGH INR 7.87 AND PT 83.6. PATIENT WITH NO ACTIVE BLEEDING NOTED. LEFT MESSAGE TO DR YUSUF , AWAITING FOR RESPONSE. WILL CONTINUE TO MONITOR.,
[2018-05-19] MEDS ORDERED: IV D5/0.45 NACL 1,000 ML IV SCH (10:30)
[2018-05-19] MEDS ORDERED: PHYTONADIONE INJ 10 MG/1 ML AMPUL SQ ONE (11:00)
[2018-05-19] MEDS: IV D5/0.45 NACL 1,000 ML IV PRN (11:01)
--- NOTE | 2018-05-19 11:10 | NUR ---
RN NOTES PATIENT INJECTED WITH VIT K 2.5 MG/0.25ML SQ ORDERED. WILL CONTINUE TO MONITOR.
[2018-05-19 12:00] VITALS: BP 89/52
[2018-05-19] MEDS: INSULIN REGULAR, HUMAN 100 UNIT/ML 3 ML VIAL SQ PRN ×2 (12:14→17:47)
[2018-05-19 16:00] VITALS: BP 91/64
[2018-05-19] MEDS ORDERED: WARFARIN SODIUM 1 MG TABLET PO SCH (17:00)
--- NOTE | 2018-05-19 18:38 | NUR ---
MS RN CLOSING NOTES PATIENT AWAKE IN BED WITH DAUGHTER GRISEL AT BEDSIDE. A/O X1-22. VERBALLY RESPONSIVE WITH EPISODE OF CONFUSION NOTED DURING THE DAY. PT TOLERATING O2 VIA N/C @ 3L/MIN, NO SOB NOTED. IV ACCESS ON LEFT WRIST PATENT AND INTACT, IVF OF D5 1/2 NS @ 75ML/HR INFUSING WELL, NO S/S OF INFILTRATION NOTED. ALL SAFETY MEASURES KEPT IN PLACE. BED IN LOW/LOCKED POSITION WITH SIDE-RAILS UP X3. HOB ELEVATED AT ALL TIMES. CALL LIGHT WITHIN REACH. ALL NEEDS AND CARE PROVIDED WELL. WILL ENDORSE TO [employer] ARCHITECT NURSE FOR [facility].
[2018-05-19 20:00] VITALS: BP 93/67
[2018-05-20] MEDS: IV D5/0.45 NACL 1,000 ML IV PRN ×2 (01:59→22:32)
[2018-05-20 04:00] VITALS: BP 118/62
[2018-05-20] MEDS: IPRATROPIUM NEB FS 0.5 MG/2.5 ML AMPUL.NEB NEB SCH ×6 (04:00→23:13)
[2018-05-20 06:26] LABS: CALCIUM, SERUM 8.1 mg/dL (8.5-10.1); CREATININE 1.9 mg/dL (0.6-1.3); MAGNESIUM 2.3 mg/dL (1.8-2.4); PHOSPHORUS 4.2 mg/dL (2.5-4.9); POTASSIUM 4.6 mmol/L (3.5-5.1)
[2018-05-20] MEDS: BLOOD SUGAR DIAGNOSTIC 1 EACH STRIP VI SCH ×4 (06:28→21:28)
[2018-05-20 06:38] LABS: BASOPHILS % (AUTO) 0.2 % (0.0-2.0); EOSINOPHILS % (AUTO) 0.2 % (0.0-6.0); HEMATOCRIT 39 % (39-51); HEMOGLOBIN 12.8 g/dL (13.5-17.5); LYMPHOCYTES # (AUTO) 0.8 /CMM (0.8-4.8); LYMPHOCYTES % (AUTO) 7.9 % (20.0-44.0); MEAN CORPUSCULAR HEMOGLOBIN 30 PG (26.0-33.0); MEAN CORPUSCULAR HGB CONC 33 g/dl (31.0-36.0); MEAN CORPUSCULAR VOLUME 93 fL (80-96); MONOCYTES # (AUTO) 1.1 /CMM (0.1-1.30); NEUTROPHILS # (AUTO) 8.2 /CMM (1.8-8.9); NEUTROPHILS % (AUTO) 80.7 % (43.0-81.0); PLATELET COUNT (AUTO) 82 /CMM (150-450); WHITE BLOOD COUNT (AUTO) 10.1 K/uL (4.3-11.0)
[2018-05-20 06:56] LABS: INR 4.83 (0.87-1.13)
[2018-05-20] MEDS: QUETIAPINE FUMARATE 25 MG TABLET PO SCH ×3 (09:40→21:27)
[2018-05-20] MEDS: VALPROIC ACID 250 MG/5 ML UDC PO SCH ×2 (09:41→21:27)
[2018-05-20] MEDS: FOLIC ACID 1 MG TABLET PO SCH (09:41)
[2018-05-20] MEDS: HYDROGEL DRESSING 90 GM TUBE TP SCH (09:46)
[2018-05-20] MEDS: CARVEDILOL 6.25 MG TABLET PO SCH ×2 (09:49→21:00)
[2018-05-20] MEDS: CLOTRIMAZOLE 1% 15 GM TUBE TP SCH ×2 (09:51→17:42)
[2018-05-20 10:08] LABS: LYMPHOCYTES % (MANUAL) 12 % (16-48); MONOCYTES % (MANUAL) 10 % (0-11.0); NEUTROPHILS % (MANUAL) 78 (42-76)
[2018-05-20 12:00] VITALS: BP 99/79
[2018-05-20] MEDS: INSULIN REGULAR, HUMAN 100 UNIT/ML 3 ML VIAL SQ PRN (12:10)
[2018-05-20] MEDS: *INSULIN REGULAR(HUMULIN R)HUM 100 UNIT/ML VIAL SQ PRN (17:39)
--- NOTE | 2018-05-20 19:35 | NUR ---
RN CLOSING NOTES PT AWAKE AND RESTING IN BED. PT IS CONFUSED. WILL CONTINUE TO REORIENT. NO APPARENT S/S OF PAIN, SOB OR DISTRESS AT THIS TIME. PT HAS A LEFT WRIST #24 IV, INTACT. PT ON 3L OF O2 VIA NASAL CANNULA. SAFETY PRECAUTIONS IN PLACE, BED IN LOWEST LOCKED POSITION, X3 SIDE RAILS UP, CALL LIGHT WITHIN REACH. WILL CONTINUE TO MONITOR. Addendum: 05/21/18 at 0655 by KRISHNA RACHEL RN RN OPENING NOTES
--- NOTE | 2018-05-20 19:48 | NUR ---
End of shift note Patient alert, confused, ate dinner. Good appetite. Dressing changed on wound. Continues on 3 L oxygen via NC. Report given to shu RNSujatha
[2018-05-20 20:00] VITALS: BP 99/74
--- NOTE | 2018-05-20 21:22 | NUR ---
RN NOTES PT BLOOD SUGAR NOTED TO BE 61. WILL GIVE PT ORANGE JUICE AND REASSESS.
[2018-05-21] MEDS: IPRATROPIUM NEB FS 0.5 MG/2.5 ML AMPUL.NEB NEB SCH ×3 (02:51→11:27)
[2018-05-21 04:00] VITALS: BP 94/71
--- NOTE | 2018-05-21 06:55 | NUR ---
RN CLOSING NOTES PT AWAKE AND RESTING IN BED. PT IS CONFUSED. WILL CONTINUE TO REORIENT. NO APPARENT S/S OF PAIN, SOB OR DISTRESS AT THIS TIME. PT HAS A LEFT WRIST #24 IV, INTACT. PT ON 3L OF O2 VIA NASAL CANNULA. SAFETY PRECAUTIONS IN PLACE, BED IN LOWEST LOCKED POSITION, X3 SIDE RAILS UP, CALL LIGHT WITHIN REACH. WILL ENDORSE TO DAY SHIFT NURSE FOR CONTINUITY OF CARE.
[2018-05-21 07:07] LABS: BASOPHILS % (AUTO) 0.1 % (0.0-2.0); EOSINOPHILS % (AUTO) 0.6 % (0.0-6.0); HEMATOCRIT 38 % (39-51); HEMOGLOBIN 12.3 g/dL (13.5-17.5); LYMPHOCYTES # (AUTO) 0.7 /CMM (0.8-4.8); LYMPHOCYTES % (AUTO) 6.5 % (20.0-44.0); MEAN CORPUSCULAR HEMOGLOBIN 30 PG (26.0-33.0); MEAN CORPUSCULAR HGB CONC 33 g/dl (31.0-36.0); MEAN CORPUSCULAR VOLUME 93 fL (80-96); MONOCYTES # (AUTO) 1.1 /CMM (0.1-1.30); MONOCYTES % (AUTO) 10.6 % (2.0-12.0); NEUTROPHILS # (AUTO) 8.7 /CMM (1.8-8.9); NEUTROPHILS % (AUTO) 82.2 % (43.0-81.0); PLATELET COUNT (AUTO) 86 /CMM (150-450); RDW COEFFICIENT OF VARIATION 17.9 (11.5-15.0); RED BLOOD CELL COUNT(AUTO) 4.04 MIL/uL (4.5-6.0); WHITE BLOOD COUNT (AUTO) 10.5 K/uL (4.3-11.0)
--- NOTE | 2018-05-21 07:10 | NUR ---
MS RN NOTES PATIENT IN BED EYES CLOSED, AROUSABLE, RESPOND TO VERBAL AND TACTILE STIMULI. NO ACUTE DISTRESS NOTED. BREATHING UNLABORED. NO SOB NOTED. IV ACCESS PATENT AND INTACT, NO REDNESS NO SWELLING NOTED. CALL LIGHT WITHIN REACH. SAFETY MEASURES IN PLACE. BED LOCKED, LOW POSITION. WILL CONTINUE TO MONITOR ACCORDINGLY.
[2018-05-21 07:20] LABS: INR 2.45 (0.87-1.13)
[2018-05-21 07:31] LABS: CALCIUM, SERUM 8.1 mg/dL (8.5-10.1); CREATININE 1.6 mg/dL (0.6-1.3); MAGNESIUM 2.3 mg/dL (1.8-2.4); PHOSPHORUS 3.2 mg/dL (2.5-4.9); POTASSIUM 4.4 mmol/L (3.5-5.1)
[2018-05-21 08:00] VITALS: BP 112/83
[2018-05-21] MEDS: BLOOD SUGAR DIAGNOSTIC 1 EACH STRIP VI SCH ×2 (08:10→12:19)
[2018-05-21 08:54] LABS: LYMPHOCYTES % (MANUAL) 5 % (16-48); MONOCYTES % (MANUAL) 10 % (0-11.0); NEUTROPHILS % (MANUAL) 85 (42-76)
[2018-05-21] MEDS: VALPROIC ACID 250 MG/5 ML UDC PO SCH (08:58)
[2018-05-21] MEDS: FOLIC ACID 1 MG TABLET PO SCH (08:59)
[2018-05-21] MEDS: HYDROGEL DRESSING 90 GM TUBE TP SCH (08:59)
[2018-05-21] MEDS: QUETIAPINE FUMARATE 25 MG TABLET PO SCH (08:59)
[2018-05-21] MEDS: CARVEDILOL 6.25 MG TABLET PO SCH (08:59)
[2018-05-21] MEDS: CLOTRIMAZOLE 1% 15 GM TUBE TP SCH (09:00)
[2018-05-21] MEDS ORDERED: WARF2TAB57 PO (09:45)
--- NOTE | 2018-05-21 09:45 | NUR ---
MS RN NOTES SEEN AND EVALUATED BY DR DAYNA YUSUF WITH NEW ORDERS MADE. NOTED AND CARRIED OUT.
[2018-05-21 12:00] VITALS: BP_SYST 110; BP_DIAS 80; BP_DIAS 85
[2018-05-21] MEDS: INSULIN REGULAR, HUMAN 100 UNIT/ML 3 ML VIAL SQ PRN (12:22)
--- NOTE | 2018-05-21 15:10 | NUR ---
MS [facility] [employer] NOTES PATIENT DISCHARGED TO [facility] PICKED UP BY 2 EMT PERSONNEL VIA AMBULANCE IN A GURNEY IN STABLE CONDITION. NO ACUTE DISTRESS NOTED, BREATHING UNLABORED. NO SOB NOTED WITH O2 @2LPM VIA NASAL CANULA. DISCHARGE INSTRUCTIONS AND BELONGINGS HANDED OVER TO THE EMT PERSONNEL REPORT GIVEN TO ZAIN LANIER OF [facility]. IV ACCESS REMOVED, NO REDNESS OR SWELLING NOTED. DRESSING CHANGED WITH PRESCRIBED MEDICATIONS. PHOTO TAKEN PLACED IN THE CHART. ALL BELONGINGS ACCOUNTED FOR. GRISEL DAUGHTER NOTIFIED OF TRANSFER.
== END 2018-05-21 15:05 | DRG 853 ==
LOC: ER 14:40 → TELE-TD 16:28 → TELE1 05-10 19:35 → MEDSG1 05-11 11:10
PROVIDERS: ADMIT Internal Medicine; ATTEND Internal Medicine
PROC: 0JBR0ZZ Excision of Left Foot Subcutaneous Tissue and Fascia, Open Approach (ICD-10-PCS; principal; 2018-05-09)
DX: A41.9 Sepsis, unspecified organism (principal); L89.524 Pressure ulcer of left ankle, stage 4; G93.40 Encephalopathy, unspecified; J96.01 Acute respiratory failure with hypoxia; G93.41 Metabolic encephalopathy; I21.A1 Myocardial infarction type 2; J18.9 Pneumonia, unspecified organism; I21.9 Acute myocardial infarction, unspecified; N17.0 Acute kidney failure with tubular necrosis; E44.0 Moderate protein-calorie malnutrition; E87.0 Hyperosmolality and hypernatremia; E87.2 Acidosis; D68.59 Other primary thrombophilia; D68.9 Coagulation defect, unspecified; Z86.73 Personal history of transient ischemic attack (TIA), and cerebral infarction without residual deficits; J44.9 Chronic obstructive pulmonary disease, unspecified; F25.9 Schizoaffective disorder, unspecified; Z95.3 Presence of xenogenic heart valve; Z95.1 Presence of aortocoronary bypass graft; Z87.440 Personal history of urinary (tract) infections; Z83.3 Family history of diabetes mellitus; Z79.899 Other long term (current) drug therapy; Z79.4 Long term (current) use of insulin; Z79.01 Long term (current) use of anticoagulants; Z88.1 Allergy status to other antibiotic agents; F41.9 Anxiety disorder, unspecified; E11.65 Type 2 diabetes mellitus with hyperglycemia; D50.9 Iron deficiency anemia, unspecified; I48.91 Unspecified atrial fibrillation; E11.22 Type 2 diabetes mellitus with diabetic chronic kidney disease; I12.9 Hypertensive chronic kidney disease with stage 1 through stage 4 chronic kidney disease, or unspecified chronic kidney disease; N18.9 Chronic kidney disease, unspecified; F29 Unspecified psychosis not due to a substance or known physiological condition; I25.10 Atherosclerotic heart disease of native coronary artery without angina pectoris; B86 Scabies; I11.0 Hypertensive heart disease with heart failure; I50.9 Heart failure, unspecified; Z66 Do not resuscitate; K21.9 Gastro-esophageal reflux disease without esophagitis; I70.0 Atherosclerosis of aorta; I67.2 Cerebral atherosclerosis; I05.0 Rheumatic mitral stenosis; F01.50 Vascular dementia, unspecified severity, without behavioral disturbance, psychotic disturbance, mood disturbance, and anxiety
CPT/HCPCS: 36415; 36600; 70450-TC; 71045-TC; 76700-TC; 76770-TC; 80048-TC; 80053-TC; 80076-TC; 80305; 81000-TC; 82140-TC; 82746; 82803-TC; 82962-TC; 83605-TC; 83735-TC; 84100-TC; 84443-TC; 84484-TC; 85025-TC; 85610-TC; 85730-TC; 86850-TC; 87040-TC; 87081-TC; 87086-TC; 92526; 92611-TC; 93307-TC; 93308-TC; 94799-TC; A4216; A4349; A4606; A4624; A6248; A6402; A6403; G0480; J1160; J1650; J1815; J2020; J2185; J2405; J2543; J3370; J3430; J3480; J3490; J7030; J7040; J7050; J7060; J7070; Z7610